=== PATIENT | male | born 1950 | race Caucasian/White ===

== ENCOUNTER 2024-12-20 10:36 | Inpatient (IN) ==
[2024-12-20] MEDS: ASPIRIN CHEW 324 MG PO STA (11:21)
[2024-12-20 11:24] LABS: Basophils # (auto) 0.05 K/uL (0.00-0.20); Basophils % (auto) 0.8 %; Eosinophils % (auto) 1.5 %; Hemoglobin 7.8 g/dl (14.0-18.0); Immature Granulocytes # (auto) 0.04 K/uL (0.01-0.20); Immature Granulocytes % (auto) 0.6 %; Lymphocytes # (auto) 1.44 K/uL (1.20-3.40); Mean Corpuscular Hemoglobin 24.6 pg (25.0-34.0); Mean Platelet Volume 9.9 fL (9.4-12.4); Monocytes # (auto) 0.64 K/uL (0.11-0.59); Monocytes % (auto) 9.8 %; Neutrophils # (auto) 4.28 K/uL (1.40-6.50); Neutrophils % (auto) 65.3 %; Platelet Count 240 K/uL (130-400); RDW Standard Deviation 53.5 fL (36.4-46.3); Red Blood Count 3.17 M/uL (4.70-6.10); White Blood Count 6.55 K/ul (4.8-10.8)
[2024-12-20 11:40] LABS: BUN Creatinine Ratio 30.2 (10-20); Calcium 8.2 mg/dl (8.6-10.3); Creatinine Clr Calc Pharmacy 47.3 ml/min; Potassium 3.4 mmol/L (3.5-5.1)
[2024-12-20 11:43] LABS: Polychromasia 1+
[2024-12-20] MEDS ORDERED: SODIUM CHLORIDE 0.9% 100 ML IV PRN ×2 (11:49→20:49)
[2024-12-20] MEDS: PANTOprazole 80 MG in DEXTROSE 5% 100 ML IV ONE (12:30)
--- NOTE | 2024-12-20 12:33 | XRay Report ---
XR chest 2V PA/lateral CLINICAL HISTORY: Chest pain, nonspecific COMPARISON STUDY: None FINDINGS: There is moderate cardiomegaly with mild pulmonary vascular congestion. No effusion, consol idation, or pneumothorax. IMPRESSION: Mild CHF. ACT 112: Negative or not required by law. Electronically signed by: Kee Kathleen M.D. 12/20/2024 12:32 PM
[2024-12-20] MEDS: PANTOprazole 40 MG in DEXTROSE 5% MINI-B 100 ML IV SCH (12:51)
[2024-12-20] MEDS: PANTOPRAZOLE BOLUS/DRIP IV STA (12:51)
[2024-12-20 18:14] LABS: Hematocrit (blood only) 28.2 % (42.0-52.0); Hemoglobin 8.6 g/dl (14.0-18.0)
--- NOTE | 2024-12-20 18:43 | Emergency Department Note ---
History of Present Illness General Chief Complaint: Cardiac Assessment Stated Complaint: SOB/TROUBLE BREATHING, DIZZY Time Seen by Provider: 12/20/24 11:05 History of Present Illness Provider Complaint: shortness of breath Onset (ago): week(s) (1) Consistency/Duration: + progressively worsening Relieved By: + upright position Exacerbated By: + lying flat Associated symptoms: + other (Blood per rectum. On Xarelto.); no chest pain, no fever, no cough, no wheezing, no hemoptysis, no syncope or no abdominal pain Home Medications Medication Instructions Recorded Confirmed Type atorvastatin 10 mg tablet 10 mg PO QAM 05/07/18 12/20/24 History losartan 100 1 tab PO QAM 05/07/18 12/20/24 History mg-hydrochlorothiazide 25 mg tablet (Hyzaar) metformin 1,000 mg tablet 1,000 mg PO BID 05/07/18 12/20/24 History metoprolol succinate 100 mg 100 mg PO QAM 05/07/18 12/20/24 History tablet,extended release 24 hr oxybutynin chloride 5 mg 5 mg PO QAM 05/07/18 12/20/24 History tablet,extended release 24 hr (Ditropan XL) pyridoxine (vitamin B6) 100 mg 100 mg PO QAM 05/07/18 12/20/24 History tablet (Vitamin B-6) tamsulosin 0.4 mg capsule (Flomax) 0.4 mg PO QAM 05/07/18 12/20/24 History qourcuzy-tm-qltgb 300 mcg-K 60 1 tab PO DAILY 10/30/24 12/20/24 History mcg-lycop 600 mcg-lutein 300 mcg tablet (Centrum Silver Men) isosorbide mononitrate 30 mg 30 mg PO DAILY #30 tabs 11/03/24 12/20/24 Rx tablet,extended release 24 hr rivaroxaban 20 mg tablet (Xarelto) 0 mg PO PM 11/12/24 12/20/24 History aspirin 81 mg tablet,delayed 81 mg PO DAILY #30 tabs 12/03/24 12/20/24 Rx release (Adult Low Dose Aspirin) clopidogrel 75 mg tablet 75 mg PO DAILY #90 tabs 12/07/24 12/20/24 Rx amlodipine 10 mg tablet 10 mg PO DAILY #30 tabs 12/10/24 12/20/24 Rx furosemide 40 mg tablet 40 mg PO DAILY PRN shortness of 12/10/24 12/20/24 Rx breath #30 tabs glipizide 10 mg tablet, extended 20 mg PO DAILY 12/20/24 12/20/24 History release 24 hr Allergies Allergy/AdvReac Type Severity Reaction Status Date / Time No Known Allergies Allergy Verified 12/07/24 11:43 Past Med/Surg History Problem List (Updated 12/20/24 @ 18:48 by Obi Marquez MD) GI bleed (Acute) CAD (coronary artery disease) Hypercholesterolemia Hypertension LVH (left ventricular hypertrophy) Atrial fibrillation, permanent Encounter for pre-operative examination Medical History Morbid obesity with BMI of 40.0-44.9, adult Lipoma of skin and subcutaneous tissue of neck Osteoarthritis Diabetes mellitus, type 2 A1C 7.0% 12/16/17 Atrial fibrillation Hyperlipidemia Surgical History Hx of colonoscopy History of tonsillectomy History of nasal septoplasty Family History Mother Diabetes Father Diabetes Social History Smoking Status: Former smoker Tobacco Type: Smokeless Tobacco (Dip or Chew) Second Hand Exposure: No; Do You Dip or Chew Tobacco: No; Hx Alcohol Use: Yes Alcohol type: beer Hx Substance Use: No Preferred Language: Welsh Communication Ability: Effective [employer] Supervisor Required: No Beliefs That Will Affect Care: None Current Living Situation: Spouse Feels Safe at Home: Yes Assistive Devices: Glasses Physical Exam 2 Vital Signs: Vital Signs - 24 hr 12/20/24 10:48 12/20/24 11:03 12/20/24 11:15 Temperature 36.7 C Temperature Source Temporal Artery Sc an Pulse Rate 65 62 Pulse Rate from Sp O2 Sensor 61 Pulse Rhythm Pulse Strength Respiratory Rate 14 19 Blood Pressure 142/64 H 140/69 Blood Pressure Madisyn n 90 95 Blood Pressure Pos ition Pulse Oximetry 96 95 Oxygen Delivery Me thod Room Air Oxygen Flow Rate Sepsis New/Unexpla ined Change in Men geraldo Status No Sepsis Action Take n by Nursing No Action Required 12/20/24 11:16 12/20/24 11:18 12/20/24 11:42 Temperature Temperature Source Pulse Rate 67 Pulse Rate from Sp O2 Sensor 66 Pulse Rhythm Pulse Strength Respiratory Rate 30 H Blood Pressure Blood Pressure Madisyn n Blood Pressure Pos ition Pulse Oximetry 94 94 92 Oxygen Delivery Me thod Room Air Room Air Oxygen Flow Rate Sepsis New/Unexpla ined Change in Men geraldo Status Sepsis Action Take n by Nursing 12/20/24 11:51 12/20/24 11:58 12/20/24 12:24 Temperature Temperature Source Pulse Rate 65 65 Pulse Rate from Sp O2 Sensor Pulse Rhythm Pulse Strength Respiratory Rate 28 H Blood Pressure 157/66 H Blood Pressure Madisyn n 122 Blood Pressure Pos ition Pulse Oximetry Oxygen Delivery Me thod Oxygen Flow Rate Sepsis New/Unexpla ined Change in Men geraldo Status Sepsis Action Take n by Nursing 12/20/24 12:24 12/20/24 12:31 12/20/24 12:33 Temperature Temperature Source Pulse Rate 64 67 Pulse Rate from Sp O2 Sensor 64 Pulse Rhythm Pulse Strength Respiratory Rate 24 24 Blood Pressure 143/77 H Blood Pressure Madisyn n 90 Blood Pressure Pos ition Pulse Oximetry 94 Oxygen Delivery Me thod Oxygen Flow Rate Sepsis New/Unexpla ined Change in Men geraldo Status Sepsis Action Take n by Nursing 12/20/24 12:57 12/20/24 13:00 12/20/24 13:03 Temperature Temperature Source Pulse Rate 63 59 L Pulse Rate from Sp O2 Sensor 69 61 Pulse Rhythm Pulse Strength Respiratory Rate 24 24 Blood Pressure 143/63 H Blood Pressure Madisyn n 100 Blood Pressure Pos ition Pulse Oximetry 94 93 Oxygen Delivery Me thod Oxygen Flow Rate Sepsis New/Unexpla ined Change in Men geraldo Status Sepsis Action Take n by Nursing 12/20/24 14:26 12/20/24 14:40 12/20/24 14:42 Temperature 36.4 C L 36.8 C 36.8 C Temperature Source Oral Oral Oral Pulse Rate 61 53 L Pulse Rate from Sp O2 Sensor Pulse Rhythm Regular Regular Pulse Strength Normal Normal Respiratory Rate 21 20 20 Blood Pressure 125/65 145/70 H 151/70 H Blood Pressure Madisyn n 85 95 97 Blood Pressure Pos ition Sitting Sitting Pulse Oximetry 92 96 94 Oxygen Delivery Me thod Oxygen Flow Rate Sepsis New/Unexpla ined Change in Men geraldo Status Sepsis Action Take n by Nursing 12/20/24 14:57 12/20/24 15:27 12/20/24 16:08 Temperature 36.8 C 36.5 C 36.5 C Temperature Source Oral Oral Oral Pulse Rate 62 61 53 L Pulse Rate from Sp O2 Sensor Pulse Rhythm Regular Pulse Strength Normal Respiratory Rate 18 19 17 Blood Pressure 152/76 H 156/81 H 150/77 H Blood Pressure Madisyn n 101 106 101 Blood Pressure Pos ition Sitting Pulse Oximetry 93 94 95 Oxygen Delivery Me thod Oxygen Flow Rate 0 0 Sepsis New/Unexpla ined Change in Men geraldo Status Sepsis Action Take n by Nursing 12/20/24 16:21 12/20/24 16:23 12/20/24 16:24 Temperature Temperature Source Pulse Rate 52 L 64 55 L Pulse Rate from Sp O2 Sensor 57 L 56 L Pulse Rhythm Pulse Strength Respiratory Rate 22 25 H Blood Pressure Blood Pressure Madisyn n Blood Pressure Pos ition Pulse Oximetry 93 95 Oxygen Delivery Me thod Room Air Room Air Oxygen Flow Rate Sepsis New/Unexpla ined Change in Men geraldo Status Sepsis Action Take n by Nursing 12/20/24 16:30 12/20/24 17:00 12/20/24 17:00 Temperature Temperature Source Pulse Rate 49 L Pulse Rate from Sp O2 Sensor 54 L Pulse Rhythm Pulse Strength Respiratory Rate 23 Blood Pressure 151/78 H 145/73 H Blood Pressure Madisyn n 115 98 Blood Pressure Pos ition Pulse Oximetry 94 Oxygen Delivery Me thod Room Air Oxygen Flow Rate Sepsis New/Unexpla ined Change in Men geraldo Status Sepsis Action Take n by Nursing 12/20/24 17:18 12/20/24 17:30 12/20/24 17:36 Temperature Temperature Source Pulse Rate 51 L 63 Pulse Rate from Sp O2 Sensor 58 L Pulse Rhythm Pulse Strength Respiratory Rate 15 24 Blood Pressure 148/76 H Blood Pressure Madisyn n 110 Blood Pressure Pos ition Pulse Oximetry 91 Oxygen Delivery Me thod Oxygen Flow Rate Sepsis New/Unexpla ined Change in Men geraldo Status Sepsis Action Take n by Nursing 12/20/24 18:00 12/20/24 18:03 12/20/24 18:30 Temperature Temperature Source Pulse Rate 58 L 57 L Pulse Rate from Sp O2 Sensor 57 L 62 Pulse Rhythm Pulse Strength Respiratory Rate 20 18 Blood Pressure 150/77 H Blood Pressure Madisyn n 85 Blood Pressure Pos ition Pulse Oximetry 94 93 Oxygen Delivery Me thod Room Air Oxygen Flow Rate Sepsis New/Unexpla ined Change in Men geraldo Status Sepsis Action Take n by Nursing 12/20/24 18:30 Temperature Temperature Source Pulse Rate Pulse Rate from Sp O2 Sensor Pulse Rhythm Pulse Strength Respiratory Rate Blood Pressure 162/77 H Blood Pressure Madisyn n 109 Blood Pressure Pos ition Pulse Oximetry Oxygen Delivery Me thod Oxygen Flow Rate Sepsis New/Unexpla ined Change in Men geraldo Status Sepsis Action Take n by Nursing Physical Exam: Physical Exam HENT: Exam performed. - Head: Normocephalic and atraumatic. EYES: Conjunctivae and EOM are normal. Pupils are equal, round, and reactive to light. Right eye exhibits no discharge. Left eye exhibits no discharge. No scleral icterus. NECK: Normal range of motion. Neck supple. No JVD present.No rigidity. No tracheal deviation and normal range of motion present. CV: Normal rate, irregular rhythm, normal heart sounds and intact distal pulses. 2+ pitting edema of the bilateral lower extremities. Palpable radial pulses bue. PULM/CHEST: Inspiratory rales bilaterally. ABD: The abdomen is soft. Morbidly obese. There is no tenderness. There is no rebound, no guarding. Rectal: Melanotic stool Hemoccult positive NEURO: Motor and sensation grossly intact. Course Course 1105: The patient was evaluated in room B5. A complete history and physical exam was performed Cardiac monitoring: An order was placed for continuous cardiac monitoring. The monitor shows a rate of 60 with atrial fibrilation rhythm interpreted by me 1230: Vital signs stable. Patient's hemoglobin is down to 7.8 and his creatinine is up to 1.89. Troponin is negative. Patient's dyspnea is thought to be more due to his GI bleed and anemia. Given patient's history of coronary artery disease and feelings of dyspnea as well as JOSSIE, patient be transfused 1 unit packed red blood cells. Patient started on Protonix bolus and drip. Patient will be admitted to the [facility] hospitalist team. 1549: Still awaiting hospitalist orders. Contacted Dr. Gould who states she will be down to evaluate the patient. 1610: Spoke with Dr. Gould [facility] hospitalist about the patient. She asked that I speak with GI. GI Dr. De La Torre was notified via [facility] text about the patient. Administered Medications Pantoprazole Sodium 40 mg/ (Dextrose) 100 mls @ 20 mls/hr IV Q5H NGHIA Stop: 01/19/25 12:14 Last Admin: 12/20/24 17:45 Dose: 8 mg/hr, 20 mls/hr Documented By: Infusion: 12/20/24 17:43 Dose: Infused Documented By: Admin: 12/20/24 12:51 Dose: 8 mg/hr, 20 mls/hr Documented By: ALEJANDRO Discontinued Medications Aspirin (Aspirin Chew 324 Mg) 324 mg PO NOW STA Stop: 12/20/24 11:08 Last Admin: 12/20/24 11:21 Dose: 324 mg Documented By: ALEJANDRO Pantoprazole Sodium 80 mg/ (Dextrose) 120 mls @ 480 mls/hr IV NOW ONE Stop: 12/20/24 12:03 Last Infusion: 12/20/24 12:50 Dose: Infused Documented By: Admin: 12/20/24 12:30 Dose: 480 mls/hr Documented By: ALEJANDRO Pantoprazole Sodium (Pantoprazole Bolus/Drip) 1 each IV NOW STA Stop: 12/20/24 11:50 Last Admin: 12/20/24 12:51 Dose: Not Given Documented By: ALEJANDRO Medical Decision Making Laboratory Data Attestation: I reviewed the patient's lab results. 12/20/24 17:58 12/20/24 11:10 Lab Results 12/20/24 12/20/24 12/20/24 Range/Units 11:10 12:45 13:10 WBC 6.55 (4.8-10.8) K/ul RBC 3.17 L (4.70-6.10) M/uL Hgb 7.8 L (14.0-18.0) g/dl Hct 26.0 L (42.0-52.0) % MCV 82.0 (80.0-100.0) fL MCH 24.6 L (25.0-34.0) pg MCHC 30.0 L (32.0-36.0) g/dL RDW Std Deviation 53.5 H (36.4-46.3) fL RDW Coeff of Steven 18.0 H (11.5-14.5) % Plt Count 240 (130-400) K/uL MPV 9.9 (9.4-12.4) fL Immature Gran % (Auto) 0.6 % Neut % (Auto) 65.3 % Lymph % (Auto) 22.0 % [place] % (Auto) 9.8 % Eos % (Auto) 1.5 % Baso % (Auto) 0.8 % Neut # (Auto) 4.28 (1.40-6.50) K/uL Lymph # (Auto) 1.44 (1.20-3.40) K/uL [place] # (Auto) 0.64 H (0.11-0.59) K/uL Eos # (Auto) 0.10 (0.00-0.50) K/uL Baso # (Auto) 0.05 (0.00-0.20) K/uL Immature Gran # (Auto) 0.04 (0.01-0.20) K/uL Polychromasia 1+ Sodium 139 (136-145) mmol/L Potassium 3.4 L (3.5-5.1) mmol/L Chloride 105 (98-107) mmol/L Carbon Dioxide 25 (21-32) mmol/L Anion Gap 9 (3-11) BUN 57 H (6-23) mg/dl Creatinine 1.89 H (0.6-1.4) mg/dl Est Cr Clr Drug Dosing 47.3 ml/min eGFR 36.79 BUN/Creatinine Ratio 30.2 H (10-20) Glucose 182 H (70-99(Fasting)) mg/dl POC Glucose (70-99) mg/dl Calcium 8.2 L (8.6-10.3) mg/dl Troponin I High Sens 13.0 (0-20) pg/ml B-Natriuretic Peptide 332 H (0-100) pg/ml Lipase 78 (11-82) U/L Blood Type B Positive Blood Type Recheck B Positive Antibody Screen NEGATIVE Crossmatch See Detail 12/20/24 12/20/24 Range/Units 17:58 18:16 WBC (4.8-10.8) K/ul RBC (4.70-6.10) M/uL Hgb 8.6 L (14.0-18.0) g/dl Hct 28.2 L (42.0-52.0) % MCV (80.0-100.0) fL MCH (25.0-34.0) pg MCHC (32.0-36.0) g/dL RDW Std Deviation (36.4-46.3) fL RDW Coeff of Steven (11.5-14.5) % Plt Count (130-400) K/uL MPV (9.4-12.4) fL Immature Gran % (Auto) % Neut % (Auto) % Lymph % (Auto) % [place] % (Auto) % Eos % (Auto) % Baso % (Auto) % Neut # (Auto) (1.40-6.50) K/uL Lymph # (Auto) (1.20-3.40) K/uL [place] # (Auto) (0.11-0.59) K/uL Eos # (Auto) (0.00-0.50) K/uL Baso # (Auto) (0.00-0.20) K/uL Immature Gran # (Auto) (0.01-0.20) K/uL Polychromasia Sodium (136-145) mmol/L Potassium (3.5-5.1) mmol/L Chloride (98-107) mmol/L Carbon Dioxide (21-32) mmol/L Anion Gap (3-11) BUN (6-23) mg/dl Creatinine (0.6-1.4) mg/dl Est Cr Clr Drug Dosing ml/min eGFR BUN/Creatinine Ratio (10-20) Glucose (70-99(Fasting)) mg/dl POC Glucose 196 H (70-99) mg/dl Calcium (8.6-10.3) mg/dl Troponin I High Sens (0-20) pg/ml B-Natriuretic Peptide (0-100) pg/ml Lipase (11-82) U/L Blood Type Blood Type Recheck Antibody Screen Crossmatch Imaging Data Attestation: I personally reviewed and interpreted this imaging study as follows: My Impression: Chest x-ray: Cardiomegaly with cephalization Radiologist's Impression: Chest X-Ray 12/20/24 11:07 XR chest 2V PA/lateral CLINICAL HISTORY: Chest pain, nonspecific COMPARISON STUDY: None FINDINGS: There is moderate cardiomegaly with mild pulmonary vascular congestion. No effusion, consolidation, or pneumothorax. IMPRESSION: Mild CHF. ACT 112: Negative or not required by law. Electronically signed by: Kee Kathleen M.D. 12/20/2024 12:32 PM ECG Data Attestation: I personally reviewed and interpreted this ECG as follows: Interpretation: Atrial fibrillation with rate of 58. QRS and QTc intervals are within normal limits. No ST elevation or ST depression. [facility] Narrative 1105: The patient was evaluated in room B5. A complete history and physical exam was performed Cardiac monitoring: An order was placed for continuous cardiac monitoring. The monitor shows a rate of 60 with atrial fibrilation rhythm interpreted by me 1230: Vital signs stable. Patient's hemoglobin is down to 7.8 and his creatinine is up to 1.89. Troponin is negative. Patient's dyspnea is thought to be more due to his GI bleed and anemia. Given patient's history of coronary artery disease and feelings of dyspnea as well as JOSSIE, patient be transfused 1 unit packed red blood cells. Patient started on Protonix bolus and drip. Patient will be admitted to the [facility]ist team. 1549: Still awaiting hospitalist orders. Contacted Dr. Gould who states she will be down to evaluate the patient. 1610: Spoke with Dr. Gould [facility] Hospitalist about the patient. She asked that I speak with GI. GI Dr. De La Torre was notified via [facility] text about the patient. Impression & Plan GI bleed Critical Care Time Critical Care Time: Yes Total Critical Care Time: 76 I have personally spent greater than 76 minutes of critical care time in the direct management of this patient. This includes bedside care, interpretation of diagnostic studies, and testing, discussion with consultants, patient, and family members, and other required patient management activities. This 76 minutes is in excess of all separately billable procedures. Discharge Plan Visit Data Chief Complaint: Cardiac Assessment Stated Complaint: SOB/TROUBLE BREATHING, DIZZY ED Provider: Obi Marquez Discharge Problem: GI bleed Patient Disposition: Admitted As Inpatient Condition: Fair Forms Stand Alone Forms: My [facility] Prescriptions Prescriptions: No Action amlodipine 10 mg tablet 10 mg PO DAILY Qty: 30 5RF furosemide 40 mg tablet 40 mg PO DAILY PRN (Reason: shortness of breath) Qty: 30 1RF aspirin [Adult Low Dose Aspirin] 81 mg tablet,delayed release (DR/EC) 81 mg PO DAILY Qty: 30 11RF clopidogrel 75 mg tablet 75 mg PO DAILY Qty: 90 3RF Centrum Silver Men [id number] mcg tablet 1 tab PO DAILY atorvastatin 10 mg Tablet 10 mg PO QAM metoprolol succinate 100 mg Tablet Extended Release 24 Hr 100 mg PO QAM losartan-hydrochlorothiazide [Hyzaar] 100-25 mg Tablet 1 tab PO QAM tamsulosin [Flomax] 0.4 mg Capsule 0.4 mg PO QAM metformin 1,000 mg Tablet 1,000 mg PO BID oxybutynin chloride [Ditropan XL] 5 mg Tablet Extended Release 24hr 5 mg PO QAM pyridoxine (vitamin B6) [Vitamin B-6] 100 mg Tablet 100 mg PO QAM Xarelto 20 mg tablet 0 mg PO PM Rx Instructions: WAS ON 20 MG NO RECENT FILL SINCE 04/2024. UNABLE TO VERIFY WITH PT glipizide 10 mg tablet extended release 24hr 20 mg PO DAILY isosorbide mononitrate 30 mg tablet extended release 24 hr 30 mg PO DAILY Qty: 30 6RF Referrals Referrals: Feroz Moore PA-C [Primary Care Provider] - Discharge Problem: GI bleed Qualifiers: GI bleed type/associated pathology: melena Qualified Code(s): K92.1 - Melena
--- NOTE | 2024-12-20 20:24 | History & Physical Report ---
Date of Service December 20, 2024 Assessment & Plan (1) GI bleed: Plan: Continue patient on IV Protonix Check H&H every 6 hours Patient will be n.p.o. 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 And denies epigastric pain Allergies Allergy/AdvReac Type Severity Reaction Status Date / Time No Known Allergies Allergy Verified 12/07/24 11:43 Home Medications Medication Instructions Recorded Confirmed Type atorvastatin 10 mg tablet 10 mg PO QAM 05/07/18 12/20/24 History losartan 100 1 tab PO QAM 05/07/18 12/20/24 History mg-hydrochlorothiazide 25 mg tablet (Hyzaar) metformin 1,000 mg tablet 1,000 mg PO BID 05/07/18 12/20/24 History metoprolol succinate 100 mg 100 mg PO QAM 05/07/18 12/20/24 History tablet,extended release 24 hr oxybutynin chloride 5 mg 5 mg PO QAM 05/07/18 12/20/24 History tablet,extended release 24 hr (Ditropan XL) pyridoxine (vitamin B6) 100 mg 100 mg PO QAM 05/07/18 12/20/24 History tablet (Vitamin B-6) tamsulosin 0.4 mg capsule (Flomax) 0.4 mg PO QAM 05/07/18 12/20/24 History dlyrggfx-hr-rlhbe 300 mcg-K 60 1 tab PO DAILY 10/30/24 12/20/24 History mcg-lycop 600 mcg-lutein 300 mcg tablet (Centrum Silver Men) isosorbide mononitrate 30 mg 30 mg PO DAILY #30 tabs 11/03/24 12/20/24 Rx tablet,extended release 24 hr rivaroxaban 20 mg tablet (Xarelto) 0 mg PO PM 11/12/24 12/20/24 History aspirin 81 mg tablet,delayed 81 mg PO DAILY #30 tabs 12/03/24 12/20/24 Rx release (Adult Low Dose Aspirin) clopidogrel 75 mg tablet 75 mg PO DAILY #90 tabs 12/07/24 12/20/24 Rx amlodipine 10 mg tablet 10 mg PO DAILY #30 tabs 12/10/24 12/20/24 Rx furosemide 40 mg tablet 40 mg PO DAILY PRN shortness of 12/10/24 12/20/24 Rx breath #30 tabs glipizide 10 mg tablet, extended 20 mg PO DAILY 12/20/24 12/20/24 History release 24 hr Past Med/Surg History Problem List (Updated 12/20/24 @ 18:48 by Obi Marquez MD) GI bleed (Acute) CAD (coronary artery disease) Hypercholesterolemia Hypertension LVH (left ventricular hypertrophy) Atrial fibrillation, permanent Encounter for pre-operative examination Medical History Morbid obesity with BMI of 40.0-44.9, adult Lipoma of skin and subcutaneous tissue of neck Osteoarthritis Diabetes mellitus, type 2 A1C 7.0% 12/16/17 Atrial fibrillation Hyperlipidemia Surgical History Hx of colonoscopy History of tonsillectomy History of nasal septoplasty Family History Mother Diabetes Father Diabetes Social History Smoking Status: Former smoker Tobacco Type: Smokeless Tobacco (Dip or Chew) Second Hand Exposure: No; Do You Dip or Chew Tobacco: No; Hx Alcohol Use: Yes Alcohol type: beer Hx Substance Use: No Preferred Language: Thai Communication Ability: Effective Hebrew Cantor Required: No Beliefs That Will Affect Care: None Current Living Situation: Spouse Feels Safe at Home: Yes Assistive Devices: Glasses Review of Systems Review of Systems: Positive for shortness of breath positive for dizziness negative for chest pain negative for abdominal pain negative for bright red blood per rectum positive for dark melanotic stools Physical Exam Physical Exam: Patient is sitting at the edge of the ER bed after receiving 1 unit of packed RBC He is morbidly obese with a BMI of 42.4 HEENT atraumatic normocephalic pupil equal round reactive to light Mucous members are moist neck is supple Chest is clear to auscultation Cardiovascular S1-S2 irregularly irregular patient has history of atrial fibrillation Abdomen is obese firm nontender bowel sounds are present Extremities +1 edema Neurologically cranial nerves II to XII are intact no motor or sensory deficit identified Skin exam is within normal limits Results & Data Results & Data Vital Signs (Past 12 Hours) Vital Signs Temp Pulse Resp BP Pulse Ox O2 Del Method O2 Flow Rate 12/20/24 17:00 49 L 23 94 Room Air 12/20/24 17:00 145/73 H 12/20/24 16:30 151/78 H 12/20/24 16:24 55 L 25 H 95 Room Air 12/20/24 16:23 64 12/20/24 16:21 52 L 22 93 Room Air 12/20/24 16:08 36.5 C 53 L 17 150/77 H 95 0 12/20/24 15:27 36.5 C 61 19 156/81 H 94 0 12/20/24 14:57 36.8 C 62 18 152/76 H 93 12/20/24 14:42 36.8 C 53 L 20 151/70 H 94 12/20/24 14:40 36.8 C 20 145/70 H 96 12/20/24 14:26 36.4 C L 61 21 125/65 92 12/20/24 13:03 59 L 24 93 12/20/24 13:00 143/63 H 12/20/24 12:57 63 24 94 12/20/24 12:33 67 24 94 12/20/24 12:31 143/77 H 12/20/24 12:24 64 24 12/20/24 12:24 65 12/20/24 11:58 157/66 H 12/20/24 11:51 65 28 H 12/20/24 11:42 67 30 H 92 12/20/24 11:18 94 Room Air 12/20/24 11:16 94 Room Air 12/20/24 11:15 62 19 95 12/20/24 11:03 140/69 12/20/24 10:48 36.7 C 65 14 142/64 H 96 Room Air Laboratory Results Patient's hemoglobin dropped from 11.4-7.8 after 1 unit of blood transfusion it is 8.6 creatinine was 1.12 and now it is 1.89 BUN level has been elevated patient's BNP is 332 Diagnostic Findings Chest x-ray shows mild pulmonary vascular congestion no effusion consolidation or pneumothorax Medications Administered Patient has received Protonix IV will continue IV Protonix Code Status & VTE Plan VTE Prophylaxis Plan VTE Prophylaxis will be ordered: Yes PG Care Time/CCT Total # of Minutes Spent Total Time Spent with Patient: Total time spent is greater than 50% in coordination of care (as documented) at patient's floor/unit and/or counseling patient: Coding Level of Care Code 98063 INT INP/OBS CARE 3/75MIN Diagnoses GI bleed K92.1 GI bleed type/associated pathology: melena CAD (coronary artery disease) I25.10 Atrial fibrillation, permanent I48.21 Time Spent (min) 75 (1) GI bleed GI bleed type/associated pathology: melena Qualified Code(s): K92.1 - Melena
[2024-12-20] MEDS ORDERED: GLUCOSE 10 TAB/TUBE PO PRN (20:49)
[2024-12-20] MEDS ORDERED: GLUCAGON FOR INJ 1 MG VIAL SQ PRN (20:49)
[2024-12-20] MEDS ORDERED: GLUCOSE 40% GEL 15 GM TUBE PO PRN (20:49)
[2024-12-20] MEDS ORDERED: DEXTROSE 50% 50 ML SYRINGE IV PRN (20:49)
[2024-12-21 00:05] LABS: Hematocrit (blood only) 25.7 % (42.0-52.0); Hemoglobin 7.9 g/dl (14.0-18.0)
[2024-12-21] MEDS: INSULIN ASPART PER UNIT CHARGE SC SCH ×2 (00:10→17:10)
[2024-12-21 06:29] LABS: Hematocrit (blood only) 25.2 % (42.0-52.0); Hemoglobin 7.7 g/dl (14.0-18.0); Mean Corpuscular Hemoglobin 25.2 pg (25.0-34.0); Mean Corpuscular Hgb Conc 30.6 g/dL (32.0-36.0); Mean Corpuscular Volume 82.4 fL (80.0-100.0); Platelet Count 239 K/uL (130-400); RDW Coefficient of Variation 17.4 % (11.5-14.5); Red Blood Count 3.06 M/uL (4.70-6.10); White Blood Count 6.89 K/ul (4.8-10.8)
[2024-12-21 07:02] LABS: BUN Creatinine Ratio 31.3 (10-20); Calcium 8.4 mg/dl (8.6-10.3); Creatinine Clr Calc Pharmacy 60.8 ml/min; Potassium 3.7 mmol/L (3.5-5.1)
[2024-12-21 07:21] LABS: Estimated Average Glucose 174 mg/dl; Hemoglobin A1C 7.7 % (4.5-5.6)
[2024-12-21] MEDS: SODIUM CHLORIDE 0.9% 1,000 ML IV SCH (08:09)
[2024-12-21] MEDS ORDERED: amLODIPine BESYLATE 5 MG TAB PO SCH (09:00)
--- NOTE | 2024-12-21 10:30 | Gastrointestinal Consultation ---
Date of Consultation December 21, 2024 Assessment & Plan (1) GI bleed: Plan Patient admitted with reported melena and anemia. Case was discussed with Dr. De La Torre. - set up EGD for today to further evaluate. - continue to follow hgb/hct and transfuse as needed. - continue with protonix drip. 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 2 to 3 weeks of dark melanotic stool. Patient was not aware that this might be blood. Previous history. Bleeding corresponded to introduction of Plavix to his Xarelto and baby aspirin apparently patient also takes a arthritis medication [id number] from [facility] which is likely ibuprofen. So this is relatively infrequent every 3 weeks. Patient's MCV is lowish at 82 we probably should check his iron stores. Hemoglobin remains lowish around 8 g/dL. No active hemorrhage. Potential peptic ulcer disease versus gastric or small bowel AVMs. EGD today. No Xarelto greater than 24 hours. EGD can be performed in patients on Plavix History of Present Illness Reason for Consultation: melanotic stool Requesting Physician: Renetta Gould MD Attending Physician: Romaine Benson MD History of Present Illness Patient is a 74 year old male who came to the ED on 12/20/24 with complaints of dizziness, SOB, and has been experiencing black stool for 2 weeks. He reports that he has been on Xarelto for 5-6 years and plavix for a few weeks after he had a heart cath showing calcifications. he tells me that there were not any stents placed. Upon work up in the ED, he was found to have a hemoglobin of 7.8 and creatinine 1.89 and patient received 1 unit of packed RBC and saw hgb improve to 8.6. He denies smoking or alcohol use as well as the use of nonsteroidal anti-inflammatory medications. He reports that while stools have been dark, that he is actually having more constipation issues. Since recieving blood, he reports that his dizziness and SOB have resolved. He reports that he had an unremarkable colonoscopy with Maria Isabel earlier this year. I do not have these records. The remainder of the GI ROS are unremarkable. Allergies Allergy/AdvReac Type Severity Reaction Status Date / Time No Known Allergies Allergy Verified 12/21/24 11:04 Home Medications Medication Instructions Recorded Confirmed Type atorvastatin 10 mg tablet 10 mg PO QAM 05/07/18 12/20/24 History losartan 100 1 tab PO QAM 05/07/18 12/20/24 History mg-hydrochlorothiazide 25 mg tablet (Hyzaar) metformin 1,000 mg tablet 1,000 mg PO BID 05/07/18 12/20/24 History metoprolol succinate 100 mg 100 mg PO QAM 05/07/18 12/20/24 History tablet,extended release 24 hr oxybutynin chloride 5 mg 5 mg PO QAM 05/07/18 12/20/24 History tablet,extended release 24 hr (Ditropan XL) pyridoxine (vitamin B6) 100 mg 100 mg PO QAM 05/07/18 12/20/24 History tablet (Vitamin B-6) tamsulosin 0.4 mg capsule (Flomax) 0.4 mg PO QAM 05/07/18 12/20/24 History bztihpwi-qn-pipmr 300 mcg-K 60 1 tab PO DAILY 10/30/24 12/20/24 History mcg-lycop 600 mcg-lutein 300 mcg tablet (Centrum Silver Men) isosorbide mononitrate 30 mg 30 mg PO DAILY #30 tabs 11/03/24 12/20/24 Rx tablet,extended release 24 hr rivaroxaban 20 mg tablet (Xarelto) 0 mg PO PM 11/12/24 12/21/24 History aspirin 81 mg tablet,delayed 81 mg PO DAILY #30 tabs 12/03/24 12/21/24 Rx release (Adult Low Dose Aspirin) clopidogrel 75 mg tablet 75 mg PO DAILY #90 tabs 12/07/24 12/21/24 Rx amlodipine 10 mg tablet 10 mg PO DAILY #30 tabs 12/10/24 12/20/24 Rx furosemide 40 mg tablet 40 mg PO DAILY PRN shortness of 12/10/24 12/20/24 Rx breath #30 tabs glipizide 10 mg tablet, extended 20 mg PO DAILY 12/20/24 12/20/24 History release 24 hr Patient History Medical History (Updated 12/21/24 @ 08:[address]) Morbid obesity with BMI of 40.0-44.9, adult Lipoma of skin and subcutaneous tissue of neck Osteoarthritis Diabetes mellitus, type 2 Atrial fibrillation Hyperlipidemia Surgical History Hx of colonoscopy History of tonsillectomy History of nasal septoplasty Family History Mother Diabetes Father Diabetes Social History Smoking Status: Former smoker Tobacco Type: Smokeless Tobacco (Dip or Chew) Smoking End Date: 40yrs ago; Second Hand Exposure: No; Do You Dip or Chew Tobacco: No; Hx Alcohol Use: Yes Alcohol type: beer Hx Substance Use: No Preferred Language: Swazi Communication Ability: Effective Coremaker Helper Required: No Beliefs That Will Affect Care: None Current Living Situation: Spouse Feels Safe at Home: Yes Safety Concerns: Feels Safe At This Time Assistive Devices: BiPap and Glasses Review of Systems Review of Systems: All systems reviewed & are unremarkable except as noted in HPI & below Physical Exam Constitutional: WD/WN, vitals as above Respiratory: normal respiratory effort, lungs clear to auscultation Cardiovascular: Rate/Rhythm: regular rate and regular rhythm Gastrointestinal (Abdomen): normal bowel sounds, soft, nontender, no hepatosplenomegaly Psychiatric: Orientation: alert and oriented x 3 Affect: euthymic affect Results & Data Vital Signs (Past 12 Hours) Vital Signs Temp Pulse Pulse Resp BP Pulse Ox O2 Del Method 12/21/24 07:56 97.5 F L 64 20 148/68 H 91 CPAP 12/21/24 04:34 57 L 12/21/24 04:00 98.1 F 57 L 16 136/59 L 92 CPAP 12/20/24 23:56 73 20 132/53 L 90 CPAP Coding Level of Care Code 12287 INT INP/OBS CARE 2/55MIN Diagnoses GI bleed K92.1 GI bleed type/associated pathology: melena (1) GI bleed GI bleed type/associated pathology: melena Qualified Code(s): K92.1 - Melena
--- NOTE | 2024-12-21 11:18 | Anesthesiology Consultation ---
Date of Service December 21, 2024 Assessment & Plan Chart Review Chart Review: Acceptable Risk for Surgery Consults Requested none ASA ASA3 Proposed Anesthesia Anesthesia Type: MAC Risk / Benefits Reviewed With: PT / POA / Parent / Guardian, Accepts Plan and Informed Consent Obtained Additional Comments: pt aware of dental risk and accepts History Surgery Operation Date: 12/21/24 16:45 Proposed Procedures p Esophagogastroduodenoscopy Dr. Wil De La Torre MD Height/Weight Height: 5 ft 10 in Weight: 134.3 kg Allergies Allergy/AdvReac Type Severity Reaction Status Date / Time No Known Allergies Allergy Verified 12/21/24 11:04 Medications Home Medications Medication Instructions Recorded Confirmed Last Taken atorvastatin 10 mg tablet 10 mg PO QAM 05/07/18 12/20/24 05/09/18 07:00 losartan 100 1 tab PO QAM 05/07/18 12/20/24 05/12/18 06:40 mg-hydrochlorothiazide 25 mg tablet (Hyzaar) metformin 1,000 mg tablet 1,000 mg PO BID 05/07/18 12/20/24 11/01/24 metoprolol succinate 100 mg 100 mg PO QAM 05/07/18 12/20/24 11/03/24 tablet,extended release 24 hr oxybutynin chloride 5 mg 5 mg PO QAM 05/07/18 12/20/24 05/09/18 07:00 tablet,extended release 24 hr (Ditropan XL) pyridoxine (vitamin B6) 100 mg 100 mg PO QAM 05/07/18 12/20/24 05/09/18 07:00 tablet (Vitamin B-6) tamsulosin 0.4 mg capsule (Flomax) 0.4 mg PO QAM 05/07/18 12/20/24 05/09/18 07:00 hofdmoql-ln-ecmnw 300 mcg-K 60 1 tab PO DAILY 10/30/24 12/20/24 Unknown mcg-lycop 600 mcg-lutein 300 mcg tablet (Centrum Silver Men) isosorbide mononitrate 30 mg 30 mg PO DAILY #30 tabs 11/03/24 12/20/24 Unknown tablet,extended release 24 hr rivaroxaban 20 mg tablet (Xarelto) 0 mg PO PM 11/12/24 12/21/24 12/19/24 aspirin 81 mg tablet,delayed 81 mg PO DAILY #30 tabs 12/03/24 12/21/24 12/20/24 release (Adult Low Dose Aspirin) clopidogrel 75 mg tablet 75 mg PO DAILY #90 tabs 12/07/24 12/21/24 12/20/24 amlodipine 10 mg tablet 10 mg PO DAILY #30 tabs 12/10/24 12/20/24 Unknown furosemide 40 mg tablet 40 mg PO DAILY PRN shortness of 12/10/24 12/20/24 Unknown breath #30 tabs glipizide 10 mg tablet, extended 20 mg PO DAILY 12/20/24 12/20/24 Unknown release 24 hr Active Medications Generic Name Dose Route Start Last Admin Trade Name Freq PRN Reason Stop Dose Admin Pantoprazole Sodium 40 mg/ 100 mls @ 20 mls/hr 12/20/24 12:15 12/21/24 08:09 Dextrose IV 01/19/25 12:14 8 mg/hr Q5H NGHIA 20 mls/hr Administration 8 MG/HR Sodium Chloride 1,000 mls @ 80 mls/hr 12/21/24 08:00 12/21/24 08:09 Nss IV 12/24/24 07:59 80 mls/hr .[id number] NGHIA Administration Insulin Aspart 0 units 12/21/24 00:00 12/21/24 06:40 Insulin Aspart Per Unit Charge SC 01/20/25 00:00 1 units Q6 NGHIA Administration NPO Date Last Intake of Fluids: 12/20/24 Time Last Intake of Fluids: 23:59 Date Last Intake of Solids: 12/20/24 Time Last Intake of Solids: 23:59 Past Medical History Medical History ZECHARIAH (obstructive sleep apnea) Bipap Morbid obesity with BMI of 40.0-44.9, adult Lipoma of skin and subcutaneous tissue of neck Osteoarthritis Diabetes mellitus, type 2 Atrial fibrillation Hyperlipidemia Exercise / Class Metabolic Activity III < 4 Walking/Shop/Light housework Past Family History Family History Mother Diabetes Father Diabetes Past Surgical History Surgical History Hx of total knee arthroplasty Hx of colonoscopy History of tonsillectomy History of nasal septoplasty Past Anesthesia History No Hx of Anesthesia Complications and No Family Hx of Anesthesia Complications History of PONV No Hx of PONV and No Hx of Motion Sickness Social History Smoking Status: Former smoker Do You Dip or Chew Tobacco: No Smoking End Date: 40yrs ago Hx Alcohol Use: Yes Alcohol type: beer alcohol intake frequency: holidays/special occasions only Hx Substance Use: No substance use type: does not use Physical Exam Vital Signs Last Vital Signs Temp 36.4 C L 12/21/24 07:56 Pulse 64 12/21/24 07:56 Resp 20 12/21/24 07:56 BP 148/68 H 12/21/24 07:56 Pulse Ox 91 12/21/24 07:56 O2 Del Method CPAP 12/21/24 07:56 O2 Flow Rate 0 12/20/24 16:08 Constitutional + morbidly obese ENMT Mouth: + dentition abnormality (mult missing teeth. all broken. terrie poor dent); no TMJ abnormality Thyromental Distance: > or= 3.5 Finger Breadths Mallampati Class: III Neck normal visual inspection, trachea midline, + thick neck and + facial hair; neck extension not limited Respiratory normal respiratory effort Auscultation: lungs clear to auscultation bilaterally and + diminished lung sounds Cardiovascular Rate/Rhythm: regular rate and regular rhythm (irreg irreg) Heart Sounds: no murmur Musculoskeletal Spine: normal cervical ROM Extremities: full ROM of extremities Neurologic moves all extremities Psychiatric Orientation: alert and oriented x 3 Testing Laboratory Results 12/21/24 05:49 12/21/24 05:49 Hemoglobin A1c 7.7 % (4.5-5.6) H 12/21/24 05:49 Blood Type B Positive 12/20/24 12:45 Antibody Screen NEGATIVE 12/20/24 12:45 12/21/24 12/20/24 06:32 23:59 POC Glucose 155 H 159 H Stress Test pos dse oted november 2024 in chart
[2024-12-21] MEDS: METOPROLOL SUCC 50MG EXT REL TAB PO SCH (11:54)
--- NOTE | 2024-12-21 12:24 | Communication Note ---
Date of Service: December 21, 2024 EGD note Scope advanced the third part of the duodenum. Glucagon given to inhibit duodenal motility to provide improved visualization of the small bowel. No blood noted in the stomach or duodenum. No source for bleeding seen. No peptic ulcer disease. Pattern of bleeding for 2 to 3 weeks with introduction of Plavix is most consistent with intestinal AVMs. He could have small AVMs which were not bleeding and not visualized today or AVMs beyond the reach of the upper scope. As symptoms began after the introduction of Plavix reconsider the use of Plavix and aspirin and Xarelto combination. Patient had a recent colonoscopy this does not need to be repeated. If further information required or continued bleeding with stopping Plavix consider small bowel video capsule endoscopy. Patient also advised to avoid [id number]-[id number] arthritis medications other than acetaminophen. Maximum 4 tablets/day. Patient has a low MCV. Check iron levels on pretransfusion blood, this has been ordered.
--- NOTE | 2024-12-21 12:30 | GI REPORT ---
[facility] Patient: JONATHAN HOLCOMB : 1950 Sex at : Male Age: 74 Years Procedure: Upper GI endoscopy Date: 12/21/2024 Attending Physician: William De La Torre MD Referring MD: Referred Self Indications: - Suspected upper gastrointestinal bleeding - Melena Medications: - Monitored Anesthesia Care Complications: - No immediate complications. Estimated Blood Loss: - Estimated blood loss: None. Procedure: - The egd scope was introduced through the mouth and advanced to the third part of the duodenum. - The upper GI endoscopy was accomplished without difficulty. - The patient tolerated the procedure well. Findings: - The examined esophagus was normal. - The entire examined stomach was normal. - The examined duodenum was normal. Impression: - Normal esophagus. - Normal stomach. - Normal examined duodenum. - No specimens collected. - No source for upper GI bleeding despite using glucagon to inhibit duodenal motility searching for AVMs. This does not exclude small AVMs nonbleeding of the upper GI tract or AVMs beyond the reach of the scope Recommendation: - Reconsider the recent introduction of Plavix, rule out iron deficiency is playing a role in the severity of his anemia he does have a low MCV at 82. Iron studies have been ordered on pretransfusion blood. If further information or signs of bleeding consider outpatient video capsule endoscopy Procedure Code(s): - 45881, Esophagogastroduodenoscopy, flexible, transoral; diagnostic, including collection of specimen(s) by brushing or washing, when performed (separate procedure) Diagnosis Code(s): - K92.1, Melena (includes Hematochezia) CPT(R) - 2022 copyright [employer]. All Rights Reserved. The CPT codes, CCI edits and ICD codes generated are intended as suggestions and were generated based on input data. These codes are preliminary and upon appeals analyst review may be revised to meet current compliance and payer requirements. The provider is responsible for the final determination of appropriate codes, and modifiers. William De La Torre MD This document has been electronically signed. Note Initiated:12/21/2024 Note Completed:12/21/2024 12:29 PM [id number]
--- NOTE | 2024-12-21 12:32 | Electrocardiogram Report ---
Test Reason : Blood Pressure : */* mmHG Vent. Rate : 58 BPM Atrial Rate : * BPM P-R Int : * ms QRS Dur : 96 ms QT Int : 450 ms P-R-T Axes : * 42 -71 degrees QTcB Int : 441 ms Atrial fibrillation with slow ventricular response Cannot rule out Anterior infarct , age undetermined Abnormal ECG When compared with ECG of 03-Nov-2024 15:21, No significant change was found Confirmed by Bienvenido Kidd ([id number]) on 12/21/2024 12:31:35 PM Referred By: REFERRED SELF Confirmed By: Bienvenido Kidd
--- NOTE | 2024-12-21 12:43 | Anesthesiology Progress Note ---
Date of Service December 21, 2024 Anesthesia Post Procedure Vital Signs Vital Signs: Temp Pulse Pulse Pulse Resp BP BP 12/21/24 12:26 75 20 133/69 12/21/24 11:09 36.6 C 57 L 18 156/68 H 12/21/24 07:56 36.4 C L 64 20 148/68 H 12/21/24 04:34 57 L 12/21/24 04:00 36.7 C 57 L 16 136/59 L 12/20/24 23:56 73 20 132/53 L 12/20/24 22:10 12/20/24 20:02 56 L 12/20/24 19:59 56 L 12/20/24 19:45 36.4 C L 57 L 22 151/62 H 12/20/24 19:00 49 L 22 12/20/24 19:00 126/68 12/20/24 18:30 162/77 H 12/20/24 18:30 57 L 18 12/20/24 18:03 58 L 20 12/20/24 18:00 150/77 H 12/20/24 17:36 63 24 12/20/24 17:30 148/76 H 12/20/24 17:18 51 L 15 12/20/24 17:00 49 L 23 12/20/24 17:00 145/73 H 12/20/24 16:30 151/78 H 12/20/24 16:24 55 L 25 H 12/20/24 16:23 64 12/20/24 16:21 52 L 22 12/20/24 16:08 36.5 C 53 L 17 150/77 H 12/20/24 15:27 36.5 C 61 19 156/81 H 12/20/24 14:57 36.8 C 62 18 152/76 H 12/20/24 14:42 36.8 C 53 L 20 151/70 H 12/20/24 14:40 36.8 C 20 145/70 H 12/20/24 14:26 36.4 C L 61 21 125/65 12/20/24 13:03 59 L 24 12/20/24 13:00 143/63 H 12/20/24 12:57 63 24 Pulse Ox O2 Del Method O2 Flow Rate 12/21/24 12:26 95 Oxymask 5 12/21/24 11:09 95 Room Air 12/21/24 07:56 91 CPAP 12/21/24 04:34 12/21/24 04:00 92 CPAP 12/20/24 23:56 90 CPAP 12/20/24 22:10 Room Air 12/20/24 20:02 12/20/24 19:59 12/20/24 19:45 94 Room Air 12/20/24 19:00 95 Room Air 12/20/24 19:00 12/20/24 18:30 12/20/24 18:30 93 Room Air 12/20/24 18:03 94 12/20/24 18:00 12/20/24 17:36 12/20/24 17:30 12/20/24 17:18 91 12/20/24 17:00 94 Room Air 12/20/24 17:00 12/20/24 16:30 12/20/24 16:24 95 Room Air 12/20/24 16:23 12/20/24 16:21 93 Room Air 12/20/24 16:08 95 0 12/20/24 15:27 94 0 12/20/24 14:57 93 12/20/24 14:42 94 12/20/24 14:40 96 12/20/24 14:26 92 12/20/24 13:03 93 12/20/24 13:00 12/20/24 12:57 94 Transfer of Care Handoff Completed per policy Notes Mental Status: alert / awake / arousable and participated in evaluation Patient Amnestic to Procedure: Yes Nausea / Vomiting: adequately controlled Pain: adequately controlled Airway Patency, RR, SpO2: stable & adequate BP & HR: stable & adequate Hydration State: stable & adequate Anesthetic Complications: no major complications apparent and Pt Satisfied with anesthetic care
[2024-12-21 14:37] LABS: Hemoglobin 8.2 g/dl (14.0-18.0)
[2024-12-21] MEDS: IRON SUCROSE 300 MG in SODIUM CHLORIDE 0.9% 250 ML IV ONE (15:27)
[2024-12-21] MEDS: KETAMINE HCL 10MG/ML SYR ONE (15:30)
[2024-12-21] MEDS: PROPOFOL IV EMULSION 10 MG/ML 20 ML VIAL IV ONE (15:30)
[2024-12-21] MEDS: LIDOCAINE 2% 2 ML VIAL/AMP(20MG/ML) INFIL ONE (15:30)
[2024-12-21] MEDS: BENZOCAINE/TETRACAIN/BUTAM 50 APPLN/5 GM CAN EXT ONE (15:30)
--- NOTE | 2024-12-21 15:57 | Hospitalist Progress Note ---
Date of Service December 21, 2024 Assessment & Plan (1) GI bleed: Plan: He underwent EGD today, December 21. Appreciate gastroenterology consultation recommendations. No significant findings on EGD. 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 Plavix was recently started and has been discontinued. Xarelto also remains on hold for now. He may be a candidate for the Watchman procedure for his chronic atrial fibrillation so he can discontinue the Xarelto completely. He will discuss this with his identification officer. (2) Acute blood loss anemia: Plan: Hemoglobin 7.4 on admission. 1 unit packed red blood cells ordered. Repeat hemoglobin pending (3) Iron deficiency: Plan: Parenteral iron replacement ordered while hospitalized. Oral ferrous sulfate at discharge and going forward (4) CAD (coronary artery disease): Plan: Stable. Continue current medical management. Hold anticoagulants (5) Atrial fibrillation, permanent: Plan: Rate controlled. Xarelto is currently on hold. He probably is a candidate for the Watchman procedure so he can discontinue Xarelto permanently. He will discuss this with his identification officer as an outpatient Plan Hopeful discharge to home tomorrow, December 22, if stable Admission and Anticipated Discharge Date Admission Date: December 20, 2024 Subjective The patient was seen after he underwent EGD today. He is alert and oriented in no acute distress. and son are at the bedside. EGD was negative for any significant findings. He probably has some intestinal AVMs causing the bleeding. He was recently started on Plavix in addition to his aspirin and Xarelto. Plavix has been discontinued. He is iron deficient and has been started on parenteral iron replacement. Creatinine was 1.8 on admission and is down to 1.4. Protonix drip has been switched over to oral Protonix per GI service. He may be a candidate for the Watchman procedure for his chronic atrial fibrillation so he can get off the Xarelto at some point. He will discuss this with his identification officer. If he is stable tomorrow, December 22, he will be discharged to home Review of Systems 2 Review of Systems: Constitutionalno fever or chills ENTno blurred vision, no double vision, no epistaxis, no sore throat Respiratoryno cough, no wheezing, no shortness of breath Cardiacno palpitations, no chest pain, no syncope Jamia nausea, vomiting, diarrhea, hematochezia. He recently developed melenic stool GUno urinary retention, no urinary incontinence, no dysuria, no hematuria Musculoskeletalno joint pain, no muscle tenderness Skinno bruising, no rashes, no pruritus Neurono isolated weakness, no paresthesia. Generalized weakness from anemia Psychno depression, no anxiety Physical Exam 2 Physical Exam: General-alert and oriented x3, no fever, no chills HEENT-head atraumatic and normocephalic, pupils equal and reactive to light, extraocular muscles intact Neck-no lymphadenopathy or thyromegaly, trachea midline Chest-clear to auscultation. No rales, wheezing or rhonchi Cardiac-irregular rhythm consistent with atrial fibrillation. Controlled rate. Normal S1 and S2 Abdomen-normal bowel sounds, no hepatosplenomegaly Extremities-no cyanosis, clubbing, or edema Neuro-cranial nerves II through XII intact, motor and sensory function within normal limits, strength symmetrical, no focal deficits Psych-normal affect, normal mood Results & Data Results & Data Vital Signs (Past 12 Hours) Vital Signs Temp Pulse Pulse Pulse Resp BP Pulse Ox 12/21/24 13:33 36.9 C 67 20 147/61 H 91 12/21/24 12:55 60 20 150/71 H 91 12/21/24 12:41 68 20 138/50 L 92 12/21/24 12:26 75 20 133/69 95 12/21/24 11:09 36.6 C 57 L 18 156/68 H 95 12/21/24 09:30 67 12/21/24 07:56 36.4 C L 64 20 148/68 H 91 12/21/24 04:34 57 L 12/21/24 04:00 36.7 C 57 L 16 136/59 L 92 O2 Del Method O2 Flow Rate 12/21/24 13:33 Room Air 12/21/24 12:55 Room Air 12/21/24 12:41 Room Air 12/21/24 12:26 Oxymask 5 12/21/24 11:09 Room Air 12/21/24 09:30 12/21/24 07:56 CPAP 12/21/24 04:34 12/21/24 04:00 CPAP Laboratory Results 12/21/24 14:16 12/21/24 05:49 PG Care Time/CCT Total # of Minutes Spent Total Time Spent with Patient: Total time spent is greater than 50% in coordination of care (as documented) at patient's floor/unit and/or counseling patient: Coding Level of Care Code 11453 SUB INP/OBS CARE 3/50MIN Diagnoses GI bleed K92.1 GI bleed type/associated pathology: melena Acute blood loss anemia D62 Iron deficiency E61.1 CAD (coronary artery disease) I25.10 Atrial fibrillation, permanent I48.21 (1) GI bleed GI bleed type/associated pathology: melena Qualified Code(s): K92.1 - Melena
[2024-12-21 18:05] LABS: Hematocrit (blood only) 26.8 % (42.0-52.0); Hemoglobin 8.2 g/dl (14.0-18.0)
[2024-12-21] MEDS: PANTOprazole 40 MG TAB PO SCH (20:41)
[2024-12-21 23:37] LABS: Hematocrit (blood only) 25.8 % (42.0-52.0); Hemoglobin 7.9 g/dl (14.0-18.0)
[2024-12-22 06:04] LABS: Hematocrit (blood only) 24.9 % (42.0-52.0); Hemoglobin 7.5 g/dl (14.0-18.0); Mean Corpuscular Hemoglobin 24.8 pg (25.0-34.0); Mean Corpuscular Hgb Conc 30.1 g/dL (32.0-36.0); Mean Corpuscular Volume 82.2 fL (80.0-100.0); Mean Platelet Volume 9.9 fL (9.4-12.4); Platelet Count 236 K/uL (130-400); RDW Coefficient of Variation 17.5 % (11.5-14.5); Red Blood Count 3.03 M/uL (4.70-6.10); White Blood Count 6.68 K/ul (4.8-10.8)
[2024-12-22 06:27] LABS: Calcium 8.2 mg/dl (8.6-10.3); Potassium 3.4 mmol/L (3.5-5.1)
[2024-12-22 06:33] LABS: BUN Creatinine Ratio 23.8 (10-20); Creatinine Clr Calc Pharmacy 68.8 ml/min
--- NOTE | 2024-12-22 06:59 | Communication Note ---
Date of Service: December 22, 2024 Patient is iron deficient likely contributing to severity of anemia, also suggest occult GI bleeding chronically. Suspect addition of plavix exxagerbated. Start iron.
[2024-12-22 07:57] VITALS: BP 161/83; RESP 20; TEMP 97.9; O2SAT 93
[2024-12-22] MEDS: POTASSIUM CHLORIDE CRTAB 20 MEQ TABCR PO STA (08:29)
[2024-12-22] MEDS: FERROUS SULFATE 325 MG TAB PO SCH (08:33)
[2024-12-22] MEDS: IRON SUCROSE 200 MG in SODIUM CHLORIDE 0.9% 100 ML IV ONE (08:42)
[2024-12-22 09:26] VITALS: PULSE 66
--- NOTE | 2024-12-22 11:58 | Discharge Summary ---
Discharge Summary Date of Service December 22, 2024 Principal Dx & Hospital Course #1 = Principal Diagnosis (1) GI bleed: He underwent EGD today, December 21. Appreciate gastroenterology consultation recommendations. No significant findings on EGD. 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 Plavix was recently started and has now been discontinued. Xarelto has also been discontinued and he has been switched to Eliquis which will start in 1 week. He may be a candidate for the Watchman procedure for his chronic atrial fibrillation so he can discontinue the systemic anticoagulants completely. He will discuss this with his security advisor. (2) Acute blood loss anemia: Hemoglobin 7.4 on admission. He received 1 unit packed red blood cells. Hemoglobin is low but stable. No further GI bleeding. (3) Iron deficiency: Parenteral iron replacement ordered while hospitalized. Oral ferrous sulfate at discharge and going forward (4) CAD (coronary artery disease): Stable. Continue current medical management. Xarelto has been switched to Eliquis which she will start in 1 week. (5) Atrial fibrillation, permanent: Rate controlled. Xarelto has been discontinued. He will start Eliquis in 1 week. He might be a candidate for the Watchman procedure so he can discontinue systemic anticoagulation permanently. 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 And denies epigastric pain Discharge Exam General-alert and oriented x3, no fever, no chills HEENT-head atraumatic and normocephalic, pupils equal and reactive to light, extraocular muscles intact Neck-no lymphadenopathy or thyromegaly, trachea midline Chest-clear to auscultation. No rales, wheezing or rhonchi Cardiac-irregular rhythm consistent with atrial fibrillation. Controlled rate. Normal S1 and S2 Abdomen-normal bowel sounds, no hepatosplenomegaly Extremities-no cyanosis, clubbing, or edema Neuro-cranial nerves II through XII intact, motor and sensory function within normal limits, strength symmetrical, no focal deficits Psych-normal affect, normal mood Discharge Plan Discharge Items Patient Disposition: Home - Self-Care Reason For Visit: MELANOTIC STOOL Discharge Diagnosis: Upper GI bleed, acute blood loss anemia, iron deficiency, hypokalemia Condition on Discharge: Good Activity: Resume your previous activity Non-emergency contact: Primary Care Provider and Showroom Consultant Call non-emergency contact if: your symptoms worsen Follow-up/Referrals: Feroz Moore PA-C [Primary Care Provider] - Diet: Carb Consistent or DM2 and Heart Healthy Addtl Attending Provider Instructions: Eliquis replaces Xarelto. Stay off Eliquis for 1 week. Plavix (clopidogrel) has been discontinued permanently. Take ferrous sulfate twice daily for continued iron replacement. Prescriptions for Eliquis and ferrous sulfate have been sent to [facility] pharmacy in [place]. See your primary care provider and security advisor as soon as possible Pending Studies at Discharge: No Stand-Alone Forms: My [facility] Data, Smoking Cessation Medications and DC Order Prescriptions: New ferrous sulfate 325 mg (65 mg iron) Tablet,Delayed Release (Dr/Ec) 325 mg PO BIDM Qty: 60 0RF Eliquis 5 mg tablet 5 mg PO BID Qty: 60 0RF Continued amlodipine 10 mg tablet 10 mg PO DAILY Qty: 30 5RF furosemide 40 mg tablet 40 mg PO DAILY PRN (Reason: shortness of breath) Qty: 30 1RF aspirin [Adult Low Dose Aspirin] 81 mg tablet,delayed release (DR/EC) 81 mg PO DAILY Qty: 30 11RF Centrum Silver Men [id number] mcg tablet 1 tab PO DAILY atorvastatin 10 mg Tablet 10 mg PO QAM metoprolol succinate 100 mg Tablet Extended Release 24 Hr 100 mg PO QAM losartan-hydrochlorothiazide [Hyzaar] 100-25 mg Tablet 1 tab PO QAM tamsulosin [Flomax] 0.4 mg Capsule 0.4 mg PO QAM metformin 1,000 mg Tablet 1,000 mg PO BID oxybutynin chloride [Ditropan XL] 5 mg Tablet Extended Release 24hr 5 mg PO QAM pyridoxine (vitamin B6) [Vitamin B-6] 100 mg Tablet 100 mg PO QAM glipizide 10 mg tablet extended release 24hr 20 mg PO DAILY isosorbide mononitrate 30 mg tablet extended release 24 hr 30 mg PO DAILY Qty: 30 6RF Discontinued clopidogrel 75 mg tablet 75 mg PO DAILY Qty: 90 3RF Xarelto 20 mg tablet 0 mg PO PM Rx Instructions: WAS ON 20 MG NO RECENT FILL SINCE 04/2024. UNABLE TO VERIFY WITH PT Discharge Orders: Discharge Order (Routine); Ordered 12/22/24 Ordered By: Romaine Chavez/Other Patient Handouts: High Blood Sugar (Hyperglycemia), Hypoglycemia (Low Blood Sugar), Managing Type 2 Diabetes Admission Data Admit Date/Time: 12/20/24 18:03 Attending Provider: Romaine Benson Admit Provider: Renetta Gould Primary Care Provider: Feroz Moore Other Providers: Renetta Gould; William De La Torre Other Interventions: Discharge Summary Assessment (RN) Last Done: 12/21/24 12:53 Hospital Stay Data Consultations 12/20/24 12:27 ED Decision to Admit Stat 12/20/24 17:40 Consult Gastroenterology Stat Procedures Performed Operation Date: 12/21/24 16:45 Actual Procedures p Esophagogastroduodenoscopy - William De La Torre MD Pending Results Patient Have Any Pending Studies at Discharge: No Discharge Instructions Given to Patient (Per Discharging Provider) Eliquis replaces Xarelto. Stay off Eliquis for 1 week. Plavix (clopidogrel) has been discontinued permanently. Take ferrous sulfate twice daily for continued iron replacement. Prescriptions for Eliquis and ferrous sulfate have been sent to [facility] pharmacy in [place]. See your primary care provider and security advisor as soon as possible Total Time Total Time Spent Total Time Spent (In Minutes): 45 minutes Coding Level of Care Code 20104 INP/OBS DISCH >30 MIN Diagnoses GI bleed K92.1 GI bleed type/associated pathology: melena Acute blood loss anemia D62 Iron deficiency E61.1 CAD (coronary artery disease) I25.10 Atrial fibrillation, permanent I48.21
== END 2024-12-22 13:08 | disposition home or self-care (01) | DRG 378 ==
LOC: ED 10:36 → 2E 18:03 → SUATTDRO 18:03 → 2E 19:12

== ENCOUNTER 2025-04-01 11:01 | Inpatient (IN) ==
--- NOTE | 2025-04-01 11:48 | XRay Report ---
XR chest 1V portable CLINICAL HISTORY: Chest pain, nonspecific COMPARISON STUDY: 01/15/2025 FINDINGS: Stable moderate cardiomegaly with mild pulmonary vascular congestion. No consolidation or p leural effusion seen. No pneumothorax. IMPRESSION: Mild CHF. ACT 112: Negative or not required by law. Electronically signed by: Kee Kathleen M.D. 04/01/2025 11:46 AM
[2025-04-01 12:08] LABS: Alanine Aminotransferase 10.0 U/L (7-52); Albumin Globulin Ratio 1.3 (0.9-2); Alkaline Phosphatase 77.0 U/L (34-104); Anion Gap 8.0 (3-11); Bilirubin,Total 0.7 mg/dl (0.2-1.0); Blood Urea Nitrogen 51.0 mg/dl (6-23); Calcium 8.6 mg/dl (8.6-10.3); Carbon Dioxide 27.0 mmol/L (21-32); Chloride 103.0 mmol/L (98-107); Creatinine Clr Calc Pharmacy 36.2 ml/min; Globulin 3.1 gm/dl (2.5-4.0); Glucose 277.0 mg/dl (70-99(Fasting)); Potassium 4.3 mmol/L (3.5-5.1); Sodium 138.0 mmol/L (136-145); Total Protein 7.0 gm/dl (6.0-8.3)
[2025-04-01 12:18] LABS: INR 1.2 (0.9-1.1); Partial Thromboplastin Time 28 Seconds (21-31); Prothrombin Time 12.4 Seconds (9.0-12.0)
[2025-04-01 12:34] LABS: Hematocrit (blood only) 22.5 % (42.0-52.0); Hemoglobin 6.7 g/dl (14.0-18.0); Mean Corpuscular Hemoglobin 24.0 pg (25.0-34.0); Mean Corpuscular Volume 80.6 fL (80.0-100.0); Platelet Count 292 K/uL (130-400); RDW Standard Deviation 50.2 fL (36.4-46.3); Red Blood Count 2.79 M/uL (4.70-6.10); White Blood Count 6.39 K/ul (4.8-10.8)
[2025-04-01 12:35] LABS: Hypochromasia Present; Immature Granulocytes # (auto) 0.03 K/uL (0.01-0.20); Immature Granulocytes % (auto) 0.5 %; Polychromasia 1+
--- NOTE | 2025-04-01 12:40 | Emergency Department Note ---
Impression & Plan Anemia, Fluid overload, ARGUETA (dyspnea on exertion), Acute kidney injury superimposed on CKD ED Provider Note Provider: Juan J Sanderson MD CHIEF COMPLAINT: Short of breath, swelling, weak HISTORY OF PRESENT ILLNESS: Patient is a 75-year-old gentleman past medical history significant for CAD, hypertension, atrial fibrillation, type 2 diabetes, admission in December for anemia and GI bleed presenting here today with with complaints of left several months of having increasing fatigue and shortness of breath with exertion. Feeling lightheaded at times. Evidently tripped and fell in the bathroom last night because of on his hands and landed on his knees. Did not strike his head. Denies any headache. States walking 15 to 20 feet he gets short of breath. Denies chest pain. Denies significant injury to his arms and legs from the fall. Has been following closely with cardiology and had some kidney issues recently and they decreased his Bumex but with increased swelling they increased it again a week or 2 ago and it has not helped. He is urinating a good bit. Occasionally some darker stools but no bloody stools. No epistaxis. Was transfused for his GI bleed in December and switch from Xarelto and Plavix to Eliquis which he states he ran out of on Saturday and just got the prescription refilled. PAST MEDICAL HISTORY: As noted above MEDICATIONS: Reviewed home indications SOCIAL HISTORY: , long-fast food delivery driver PHYSICAL EXAM: GENERAL: alert and oriented in no acute distress on stretcher Head: normocephalic and atraumatic EYES: No injection, discharge or icterus. EOMI. NECK: Trachea midline. Supple. ENT: Mucous membranes pink and moist. LUNGS: Airway patent. No retractions. Breath sounds some crackles in the bases HEART: Irregular irregular rate and rhythm. No chest wall tenderness ABDOMEN: Soft and non-tender, without guarding or rebound. Rectal: With nurse subway conductor with brown stool Hemoccult negative. No hemorrhoids appreciated. SKIN: Acyanotic, warm, dry, without rashes EXTREMITIES: With 1-2+ lower extremity edema. No significant tenderness of the hand/wrist bilaterally or the bilateral knees. NEUROLOGICAL: No focal deficits. No aphasia. No facial droop or slurred speech. Ambulatory. EK bpm atrial fibrillation. No acute ST segment elevation with some nonspecific T wave flattening T wave changes. QTc 430. CONTINUOUS CARDIAC MONITORING: was ordered and showed a heart rate of 50s to 70s bpm in atrial fibrillation Patient's laboratory studies and imaging reviewed. Differential includes Reactive airway disease, pneumonia, pneumothorax, COPD, CHF, infections, cardiac ischemia, pulmonary embolism, musculoskeletal, gastrointestinal, as well as other pathologies. IMPRESSION/MEDICAL DECISION MAKING: Patient here with weakness and increased swelling refractory to increased Bumex dosing. Does not appear to suffered a significant head trauma. Doubt acute cranial bleed. Has not been on Eliquis due to refill although states he has to get it from the pharmacy. Patient is noted some darker stools. Has been short of breath particular with exertion. Reviewed prior medical history in the computer. EKG here without STEMI and rate controlled A-fib. Denies significant infectious symptoms and no fever reported. Not hypoxic here. Blood work completed here however shows significant anemia hemoglobin 6.7. Patient consented for blood and 1 unit of packed red blood cells ordered. Iron panel is sent. Chemistry/electrolytes without findings of troponin elevation. No significant electrolyte abnormality but BUN elevated 51 and creatinine 2.41. Increase from baseline. Seems to have some component of fluid overload on the chest x-ray as well as clinically. Some part of this may be related to his anemia. Has been on increased dose of Bumex without improvement. Will transfuse with blood and ordered an IV dose of Bumex here. Will have to be monitored for fluid overload. Prior workup with EGD reassuring in December. Doubt this represents upper GI bleed. They previously postulated it could be AVM intestinal bleed. Hemoccult negative however at this time. Do not see hemorrhoid. Will give one-time dose of Protonix. Given his symptomatic anemia, underlying cardiac conditions, and signs of fluid overload and worsening renal function on diuretics discussed with him and his plan to stay for further care and evaluation. Patient denies symptoms of urinary retention. Hospitalist team was consulted for evaluation and further care. DIAGNOSIS: Weakness, dyspnea on exertion, anemia, fluid overload DISPOSITION: Hospitalist will evaluate Patient was agreeable with this plan. Critical Care I have personally spent 33 minutes of critical care time in the direct management of this patient. This includes bedside care, interpretation of diagnostic studies, and testing, discussion with consultants, patient, and family members, and other required patient management activities. These 33 minutes is in excess of all separately billable procedures. Past Med/Surg History Problem List (Updated 04/01/25 @ 14:29 by Jem Holguin MD) Symptomatic anemia Acute kidney injury superimposed on CKD (Acute) ARGUETA (dyspnea on exertion) (Acute) Fluid overload (Acute) Anemia (Acute) Mitral regurgitation Pulmonary hypertension Acute on chronic heart failure with preserved ejection fraction (HFpEF) Morbid obesity with BMI of 40.0-44.9, adult Hyperlipidemia Type 2 diabetes mellitus Iron deficiency Acute blood loss anemia GI bleed (Acute) Hypercholesterolemia LVH (left ventricular hypertrophy) Encounter for pre-operative examination Hypertension Medical History (Updated 04/01/25 @ 14:29 by Jem Holguin MD) CAD (coronary artery disease) Atrial fibrillation, permanent ZECHARIAH (obstructive sleep apnea) Bipap Lipoma of skin and subcutaneous tissue of neck Osteoarthritis Atrial fibrillation Surgical History Hx of total knee arthroplasty Hx of colonoscopy History of tonsillectomy History of nasal septoplasty Family History Mother Diabetes Father Diabetes Social History Smoking Status: Never smoker Tobacco Type: Smokeless Tobacco (Dip or Chew) Second Hand Exposure: No; Do You Dip or Chew Tobacco: No; Hx Alcohol Use: No Hx Substance Use: No Preferred Language: Kyrgyz Communication Ability: Effective Social Problems Specialist Required: No Beliefs That Will Affect Care: None Current Living Situation: Spouse Other Information That Helps Us Care for You: No Feels Safe at Home: Yes Safety Concerns: Feels Safe At This Time Assistive Devices: BiPap Allergies Allergies Allergy/AdvReac Type Severity Reaction Status Date / Time No Known Allergies Allergy Verified 04/01/25 13:26 Home Meds Home Medications Medication Instructions Recorded Confirmed atorvastatin 10 mg tablet 10 mg PO QAM 05/07/18 04/01/25 pyridoxine (vitamin B6) 100 mg 100 mg PO QAM 05/07/18 04/01/25 tablet (Vitamin B-6) tamsulosin 0.4 mg capsule (Flomax) 0.4 mg PO QAM 05/07/18 04/01/25 [id number] 300 mcg-K 60 1 tab PO DAILY 10/30/24 04/01/25 mcg-lycop 600 mcg-lutein 300 mcg tablet (Centrum Silver Men) metoprolol succinate 100 mg 200 mg PO QAM 12/30/24 04/01/25 tablet,extended release 24 hr blood-glucose sensor (Dexcom G7 01/15/25 03/19/25 Sensor device) blood-glucose,sample room supervisor,cont 01/15/25 03/19/25 (Dexcom G7 Curriculum Coach) bumetanide 2 mg tablet 2 mg PO BID 02/16/25 04/01/25 insulin glargine 100 unit/mL (3 45 unit subcut QPM 04/01/25 04/01/25 mL) subcutaneous pen (Lantus Solostar U-100 Insulin) oxybutynin chloride 5 mg 5 mg PO DAILY 04/01/25 04/01/25 tablet,extended release 24 hr Previous Rx's Medication Instructions Recorded aspirin 81 mg tablet,delayed 81 mg PO DAILY #90 tabs 12/30/24 release (Adult Low Dose Aspirin) pen needle, diabetic 32 gauge x #100 ea 01/01/25" (Linn 2nd Gen Pen Needle) apixaban 5 mg tablet (Eliquis) 5 mg PO BID #60 tabs 01/05/25 amlodipine 10 mg tablet 10 mg PO DAILY #90 tabs 01/07/25 ranolazine 500 mg tablet,extended 500 mg PO BID #180 tabs 01/27/25 release,12 hr isosorbide mononitrate 30 mg 30 mg PO DAILY #90 tabs 02/10/25 tablet,extended release 24 hr losartan 100 mg tablet 100 mg PO DAILY #90 tabs 02/16/25 Results & Data (ED) Vital Signs Vital Signs - 24 hr 04/01/25 11:04 04/01/25 11:33 04/01/25 11:33 Temperature 36.3 C L Temperature Source Temporal Artery Scan Pulse Rate 64 Pulse Rate [Apical] 63 63 Respiratory Rate 18 16 16 Respiratory Effort / Characteristics Non-Labored Spontaneous Non-Labored Spontaneous Non-Labored Spontaneous Respiratory Depth Normal Normal Normal Respiratory Pattern Regular Blood Pressure 127/66 Blood Pressure [Right Arm] 160/80 H 160/80 H Blood Pressure Mean 86 Blood Pressure Mean [Right Arm] 106 106 Pulse Oximetry 94 96 96 Oxygen Delivery Method Room Air Room Air Room Air Sepsis Recent Fever Within 48 Hours No Sepsis New/Unexplained Change in Mental Status N/A Sepsis Action Taken by Nursing No Action Required 04/01/25 11:33 04/01/25 11:33 04/01/25 12:01 Temperature Temperature Source Pulse Rate 63 Pulse Rate [Apical] 68 Respiratory Rate 16 16 Respiratory Effort / Characteristics Non-Labored Spontaneous Respiratory Depth Normal Respiratory Pattern Blood Pressure Blood Pressure [Right Arm] 152/71 H Blood Pressure Mean Blood Pressure Mean [Right Arm] 98 Pulse Oximetry 96 96 94 Oxygen Delivery Method Room Air Room Air Room Air Sepsis Recent Fever Within 48 Hours Sepsis New/Unexplained Change in Mental Status Sepsis Action Taken by Nursing Laboratory Data 04/01/25 11:21 04/01/25 11:21 Lab Results 04/01/25 04/01/25 Range/Units 11:21 12:50 WBC 6.39 (4.8-10.8) K/ul RBC 2.79 L (4.70-6.10) M/uL Hgb 6.7 L* (14.0-18.0) g/dl Hct 22.5 L (42.0-52.0) % MCV 80.6 (80.0-100.0) fL MCH 24.0 L (25.0-34.0) pg MCHC 29.8 L (32.0-36.0) g/dL RDW Std Deviation 50.2 H (36.4-46.3) fL RDW Coeff of Steven 17.1 H (11.5-14.5) % Plt Count 292 (130-400) K/uL MPV 9.8 (9.4-12.4) fL Immature Gran % (Auto) 0.5 % Neut % (Auto) 68.8 % Lymph % (Auto) 17.7 % Letcher % (Auto) 10.2 % Eos % (Auto) 2.2 % Baso % (Auto) 0.6 % Neut # (Auto) 4.40 (1.40-6.50) K/uL Lymph # (Auto) 1.13 L (1.20-3.40) K/uL Letcher # (Auto) 0.65 H (0.11-0.59) K/uL Eos # (Auto) 0.14 (0.00-0.50) K/uL Baso # (Auto) 0.04 (0.00-0.20) K/uL Immature Gran # (Auto) 0.03 (0.01-0.20) K/uL Polychromasia 1+ Hypochromasia Present PT 12.4 H (9.0-12.0) Seconds INR 1.2 H (0.9-1.1) APTT 28 (21-31) Seconds PTT Ratio 1.0 Sodium 138 (136-145) mmol/L Potassium 4.3 (3.5-5.1) mmol/L Chloride 103 (98-107) mmol/L Carbon Dioxide 27 (21-32) mmol/L Anion Gap 8 (3-11) BUN 51 H (6-23) mg/dl Creatinine 2.41 H (0.6-1.4) mg/dl Est Cr Clr Drug Dosing 36.2 ml/min eGFR 27.31 BUN/Creatinine Ratio 21.2 H (10-20) Glucose 277 H (70-99(Fasting)) mg/dl Calcium 8.6 (8.6-10.3) mg/dl Iron 15 L (35-175) mcg/dl TIBC 566 H (250-450) mcg/dl Transferrin 404 H (200-360) mg/dl Transferrin % Sat 3 L (20-50) % Ferritin 11.6 (8-388) ng/ml Total Bilirubin 0.7 (0.2-1.0) mg/dl AST 17 (13-39) U/L ALT 10 (7-52) U/L Alkaline Phosphatase 77 (34-104) U/L Troponin I High Sens 9.2 (0-20) pg/ml B-Natriuretic Peptide 384 H (0-100) pg/ml Total Protein 7.0 (6.0-8.3) gm/dl Albumin 3.9 (3.4-5.0) gm/dl Globulin 3.1 (2.5-4.0) gm/dl Albumin/Globulin Ratio 1.3 (0.9-2) Blood Type B Positive Antibody Screen NEGATIVE Crossmatch See Detail Imaging Data Radiologist's Impression: Chest X-Ray 04/01/25 11:14 XR chest 1V portable CLINICAL HISTORY: Chest pain, nonspecific COMPARISON STUDY: 01/15/2025 FINDINGS: Stable moderate cardiomegaly with mild pulmonary vascular congestion. No consolidation or pleural effusion seen. No pneumothorax. IMPRESSION: Mild CHF. ACT 112: Negative or not required by law. Electronically signed by: Kee Kathleen M.D. 04/01/2025 11:46 AM Discharge Plan Visit Data Chief Complaint: Illness Stated Complaint: LIGHTHEADED, FALLING TROUBLE BREATHING, INJURY AUBRIE ED Provider: Juan J Sanderson Discharge Problem: Anemia, Fluid overload, ARGUETA (dyspnea on exertion), Acute kidney injury superimposed on CKD Patient Disposition: Admitted As Inpatient Condition: Fair Discharge Instructions Interventions: ED Discharge Assessment Last Done: 04/01/25 13:57
[2025-04-01] MEDS ORDERED: SODIUM CHLORIDE 0.9% 100 ML IV PRN (13:06)
[2025-04-01] MEDS ORDERED: PANTOprazole 40 MG/10 ML SYR IV ONE (13:06)
[2025-04-01] MEDS ORDERED: PHARMACY GLYCEMIC MGMT CONSULT PRN (13:16)
[2025-04-01] MEDS ORDERED: ACETAMINOPHEN 325 MG TAB PO PRN (13:19)
[2025-04-01 13:20] LABS: Iron 15.0 mcg/dl (35-175); Transferrin 404.0 mg/dl (200-360)
[2025-04-01] MEDS ORDERED: DEXTROSE 50% 50 ML SYRINGE IV PRN (13:30)
[2025-04-01] MEDS ORDERED: GLUCOSE 40% GEL 15 GM TUBE PO PRN (13:30)
[2025-04-01] MEDS ORDERED: GLUCAGON FOR INJ 1 MG VIAL SQ PRN (13:30)
[2025-04-01] MEDS ORDERED: CARBOHYDRATES FOR HYPOGLYCEMIA PO PRN (13:30)
[2025-04-01] MEDS ORDERED: GLUCOSE 10 TAB/TUBE PO PRN (13:30)
[2025-04-01 13:39] LABS: Ferritin 11.6 ng/ml (8-388)
[2025-04-01 13:40] LABS: Total Iron Binding Cap Calc 566.0 mcg/dl (250-450); Transferrin (FE) Percent Satur 3.0 % (20-50)
--- NOTE | 2025-04-01 14:31 | Pharmacy Report ---
Pharmacy Glycemic Short Note 2 - Date of Service April 01, 2025 - Glycemic Short BSG Results (Last 24 hours): 04/01/25 11:21 Glucose 277 H OUTPATIENT ANTIDIABETIC REGIMEN: * Lantus 45 units SC HS HbA1c: 7.7% (12/21/24, reordered for 04/02/25 ASSESSMENT: * SS is a 75 year old male who presented to ED with increased fatigue and shortness of breath on exertion over past several months and fall last evening * Patient on basal insulin only as an outpatient - will plan to transition to 50/50 SC basal/bolus while inpatient * Blood sugar on presentation is 277 mg/dL, last dose of Lantus reported as last evening (45 units) * DM 2 diet ordered PLAN FOR INPATIENT GLYCEMIC CONTROL: * Basal insulin * Lantus 10-15-20 units SQ HS * Bolus insulin * NovoLog per scale ACHS or Q6hrs while NPO * Goal Range: Low 120 mg/dL - High 160 mg/dL * Correction Factor: 25 mg/dL/unit * Nutritional / Prandial insulin per carb ratio of 1 unit per 8 grams CHO consumed
--- NOTE | 2025-04-01 14:35 | History & Physical Report ---
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 (2) Acute on chronic heart failure with preserved ejection fraction (HFpEF): Plan: -CXR showing mild CHF -bumex 2mg IV BID -echo -cardiology consulted (3) Acute kidney injury superimposed on CKD: Plan: -cr 2.41 bumex recently increased -will con't bumex for now -nephrology consulted for recommendations (4) Type 2 diabetes mellitus: Plan: -lantus -pharm consult for glycemic management (5) Hypertension: Plan: -isosorbide -metoprolol (6) Hypercholesterolemia: Plan: -atorvastatin (7) Atrial fibrillation, permanent: Plan: -eliquis on hold 2nd to anemia -pt to consider watchman procedure to prevent futher bleeding on anticoagulation Admission and Anticipated Discharge Date Admission Date: April 01, 2025 History of Present Illness Chief Complaint: SOB, lethargy Primary Care Provider: Feroz Moore PA-C Pt is a 75 y/o male with pmh of HTN, atrial fib on eliquis, CAD, DM, recent GI bleed, who presents with several months of fatigue, SOB, and lightheadedness.Pt denies any dark stools or bleeding. Pt states he ran out of his eliquis on Saturday and has not been taking it since. He does also follow up with cardiology and nephrology and recently had his Bumex increased due to lower ext swelling. In the ER he labs showed heme 6.7, with cr of 2.41, slighly elevated from his last 2.01. His CXR showed mild CHF. He was transfused 1 unit PRBC in the ER and given a dose of bumex. Pt will be admitted for further work up of his symptomatic anemia, acute on chronic KD, and CHF exacerbation. Allergies Allergy/AdvReac Type Severity Reaction Status Date / Time No Known Allergies Allergy Verified 04/01/25 13:26 Home Medications Medication Instructions Recorded Confirmed Type atorvastatin 10 mg tablet 10 mg PO QAM 05/07/18 04/01/25 History pyridoxine (vitamin B6) 100 mg 100 mg PO QAM 05/07/18 04/01/25 History tablet (Vitamin B-6) tamsulosin 0.4 mg capsule (Flomax) 0.4 mg PO QAM 05/07/18 04/01/25 History mspifagy-iq-hdres 300 mcg-K 60 1 tab PO DAILY 10/30/24 04/01/25 History mcg-lycop 600 mcg-lutein 300 mcg tablet (Centrum Silver Men) aspirin 81 mg tablet,delayed 81 mg PO DAILY #90 tabs 12/30/24 04/01/25 Rx release (Adult Low Dose Aspirin) metoprolol succinate 100 mg 200 mg PO QAM 12/30/24 04/01/25 History tablet,extended release 24 hr pen needle, diabetic 32 gauge x #100 ea 01/01/25 03/19/25 Rx " (Linn 2nd Gen Pen Needle) apixaban 5 mg tablet (Eliquis) 5 mg PO BID #60 tabs 01/05/25 04/01/25 Rx amlodipine 10 mg tablet 10 mg PO DAILY #90 tabs 01/07/25 04/01/25 Rx blood-glucose sensor (Dexcom G7 01/15/25 03/19/25 History Sensor device) blood-glucose,hose builder,cont 01/15/25 03/19/25 History (Dexcom G7 Chlorination Operator) ranolazine 500 mg tablet,extended 500 mg PO BID #180 tabs 01/27/25 04/01/25 Rx release,12 hr isosorbide mononitrate 30 mg 30 mg PO DAILY #90 tabs 02/10/25 04/01/25 Rx tablet,extended release 24 hr bumetanide 2 mg tablet 2 mg PO BID 02/16/25 04/01/25 History losartan 100 mg tablet 100 mg PO DAILY #90 tabs 02/16/25 04/01/25 Rx insulin glargine 100 unit/mL (3 45 unit subcut QPM 04/01/25 04/01/25 History mL) subcutaneous pen (Lantus Solostar U-100 Insulin) oxybutynin chloride 5 mg 5 mg PO DAILY 04/01/25 04/01/25 History tablet,extended release 24 hr Past Med/Surg History Problem List (Updated 04/01/25 @ 14:29 by Jem Holguin MD) Symptomatic anemia Acute kidney injury superimposed on CKD (Acute) ARGUETA (dyspnea on exertion) (Acute) Fluid overload (Acute) Anemia (Acute) Mitral regurgitation Pulmonary hypertension Acute on chronic heart failure with preserved ejection fraction (HFpEF) Morbid obesity with BMI of 40.0-44.9, adult Hyperlipidemia Type 2 diabetes mellitus Iron deficiency Acute blood loss anemia GI bleed (Acute) Hypercholesterolemia LVH (left ventricular hypertrophy) Encounter for pre-operative examination Hypertension Medical History (Updated 04/01/25 @ 14:29 by Jem Holguin MD) CAD (coronary artery disease) Atrial fibrillation, permanent ZECHARIAH (obstructive sleep apnea) Bipap Lipoma of skin and subcutaneous tissue of neck Osteoarthritis Atrial fibrillation Surgical History Hx of total knee arthroplasty Hx of colonoscopy History of tonsillectomy History of nasal septoplasty Family History Mother Diabetes Father Diabetes Social History Smoking Status: Never smoker Tobacco Type: Smokeless Tobacco (Dip or Chew) Second Hand Exposure: No; Do You Dip or Chew Tobacco: No; Hx Alcohol Use: Yes Alcohol type: beer Hx Substance Use: No Preferred Language: [place]orese Communication Ability: Effective Medicaid Collection Specialist Required: No Beliefs That Will Affect Care: None Current Living Situation: Spouse Feels Safe at Home: Yes Assistive Devices: BiPap, Cane, Walker and Wheelchair Review of Systems Review of Systems: CONST: Positive fatigue, Negative for fever, body aches and chills. HENT: Negative for neck pain/stiffness, headache, congestion, sore throat, swelling. EYES: Negative for discharge/pain or vision changes. RESP: Negative for cough/hemoptysis and Positive shortness of breath. CV: Negative chest pain, difficulty breathing, palpitations. ABD: Negative pain, nausea, vomiting. : Negative increase frequency, dysuria, blood in urine or stool. MUSC: Negative for muscle aches, edema. SKIN: Negative rash, lesions/sores. NEURO: Negative headache, dizziness, weakness. Physical Exam Physical Exam: GENERAL APPEARANCE NAD, activity normal for age, well developed/ well nourished, no cyanosis, pallor, or diaphoresis. EYES lids/conjunctiva normal. EARS/NOSE/THROAT Mucous membranes moist, nares normal, lips/teeth normal uvula midline without oral pharyngeal erythema, exudate or swelling TMs normal bilaterally. No lymphangitis/lymphedema. HEAD/NECK normocephalic atraumatic, no facial trauma, neck is supple. RESPIRATORY respiratory effort normal, speaks in full sentences, no tripod position, no accessory muscle use. Lungs clear to auscultation without rhonchi, wheezes, rales CARDIAC Regular rate and rhythm, no edema. ABDOMINAL Soft, ND/NT. No evidence of fluid wave. No pulsatile masses on exam, rebound tenderness, Crawley sign or pain over Mcburney's point. MUSCLES/EXTREMITIES No abnormal range of motion, 2+ edema b/l lower ext SKIN Warm, pink and dry. No rashes, dermatoses, petechiae or lesions. NEUROLOGICAL Speech is clear and appropriate. Normal level of consciousness. Gait and coordination are normal. 5/5 strength in all extremities. PSYCH Normal mood and affect. Judgement/competence is appropriate Results & Data Results & Data Vital Signs (Past 12 Hours) Vital Signs Temp Pulse Pulse Resp BP BP Pulse Ox 04/01/25 12:01 68 16 152/71 H 94 04/01/25 11:33 63 16 96 04/01/25 11:33 96 04/01/25 11:33 63 16 160/80 H 96 04/01/25 11:33 63 16 160/80 H 96 04/01/25 11:04 36.3 C L 64 18 127/66 94 O2 Del Method 04/01/25 12:01 Room Air 04/01/25 11:33 Room Air 04/01/25 11:33 Room Air 04/01/25 11:33 Room Air 04/01/25 11:33 Room Air 04/01/25 11:04 Room Air PG Care Time/CCT Total # of Minutes Spent Total Time Spent with Patient: Total time spent is greater than 50% in coordination of care (as documented) at patient's floor/unit and/or counseling patient: Coding Level of Care Code 12750 INT INP/OBS CARE 2MIN Diagnoses Symptomatic anemia D64.9 Acute on chronic heart failure with preserved ejection fraction (HFpEF) I50.33 Acute kidney injury superimposed on CKD N17.9; N18.9 Type 2 diabetes mellitus with other circulatory complication, without long-term current use of insulin E11.59 Diabetes mellitus complication detail: with other circulatory complications Diabetes mellitus complication status: with circulatory complication Diabetes mellitus intermediate insulin use: without prefitter use Primary hypertension I10 Hypertension type: primary hypertension Hypercholesterolemia E78.00 Atrial fibrillation, permanent I48.21 (4) Type 2 diabetes mellitus Diabetes mellitus complication detail: with other circulatory complications Diabetes mellitus complication status: with circulatory complication Diabetes mellitus intermediate insulin use: without intermediate use Qualified Code(s): E11.59 - Type 2 diabetes mellitus with other circulatory complications (5) Hypertension Hypertension type: primary hypertension Qualified Code(s): I10 - Essential (primary) hypertension
--- NOTE | 2025-04-01 17:15 | Nephrology Consultation ---
Date of Consultation April 01, 2025 Assessment & Plan (1) Acute kidney injury superimposed on CKD: * JOSSIE on CKD due to reduced effective arterial volume from GI blood loss in the setting of NACHO inhibitor therapy * Stop NACHO/ARB * Agree with blood transfusion. Patient has been off apixaban for approximately 48 hours * IV Bumex given in the EMD to avoid TACO * Monitor I&O, daily BMP, H&H * Will order renal ultrasound, urinalysis with microscopy, MACR (2) Symptomatic anemia: (3) Hypertension: (4) Atrial fibrillation: (5) CAD (coronary artery disease): (6) Type 2 diabetes mellitus: History of Present Illness Reason for Consultation: JOSSIE/CKD Attending Physician: Jem Holguin MD History of Present Illness Mr. Amos is a 75-year-old white male who is seen at the request of the [facility] hospitalist service for evaluation of JOSSIE/CKD. Information for the HPI is obtained from direct patient interview and review of the EMR. HPI is summarized as follows: Mr. Amos has not undergone nephrology evaluation in the past. Review of the EMR shows that his serum creatinine has been quite variable depending upon his volume status. His medical history is significant for HTN, atrial fibrillation (apixaban), ASCVD, AODM, recent GI bleed (01/03 EGDno source of bleeding identified. Possible small AVMs beyond the reach of the endoscope). Mr. Amos presented to the EMD today with complaints of fatigue, ARGUETA, recent fall. EMD evaluation revealed that the patient was afebrile and hemodynamically stable. CXR revealed moderate cardiomegaly with mild pulmonary vascular congestion. Laboratory testing revealed Hgb 6.7, Cr 2.41, iron saturation 3%, ferritin 11.6. Mr. Amos was diagnosed with a GI bleed exacerbated by anticoagulation for management of atrial fibrillation. He received Bumex 2 mg IV x 2 in the EMD and 1 unit packed red blood cells. Mr. Amos denies fever, flank discomfort, gross hematuria, foamy urine, difficulty voiding or uremic symptoms. He denies regular use of nonsteroidal medications or herbal supplements. He has had no recent exposure to any known nephrotoxic agents. Allergies Allergy/AdvReac Type Severity Reaction Status Date / Time No Known Allergies Allergy Verified 04/01/25 13:26 Home Medications Medication Instructions Recorded Confirmed Type atorvastatin 10 mg tablet 10 mg PO QAM 05/07/18 04/01/25 History pyridoxine (vitamin B6) 100 mg 100 mg PO QAM 05/07/18 04/01/25 History tablet (Vitamin B-6) tamsulosin 0.4 mg capsule (Flomax) 0.4 mg PO QAM 05/07/18 04/01/25 History qjnbblzl-hq-yxksf 300 mcg-K 60 1 tab PO DAILY 10/30/24 04/01/25 History mcg-lycop 600 mcg-lutein 300 mcg tablet (Centrum Silver Men) aspirin 81 mg tablet,delayed 81 mg PO DAILY #90 tabs 12/30/24 04/01/25 Rx release (Adult Low Dose Aspirin) metoprolol succinate 100 mg 200 mg PO QAM 12/30/24 04/01/25 History tablet,extended release 24 hr pen needle, diabetic 32 gauge x #100 ea 01/01/25 03/19/25 Rx 5/32" (Linn 2nd Gen Pen Needle) apixaban 5 mg tablet (Eliquis) 5 mg PO BID #60 tabs 01/05/25 04/01/25 Rx amlodipine 10 mg tablet 10 mg PO DAILY #90 tabs 01/07/25 04/01/25 Rx blood-glucose sensor (Dexcom G7 01/15/25 03/19/25 History Sensor device) blood-glucose,makeup editor,cont 01/15/25 03/19/25 History (Dexcom G7 Senior Specialist) ranolazine 500 mg tablet,extended 500 mg PO BID #180 tabs 01/27/25 04/01/25 Rx release,12 hr isosorbide mononitrate 30 mg 30 mg PO DAILY #90 tabs 02/10/25 04/01/25 Rx tablet,extended release 24 hr bumetanide 2 mg tablet 2 mg PO BID 02/16/25 04/01/25 History losartan 100 mg tablet 100 mg PO DAILY #90 tabs 02/16/25 04/01/25 Rx insulin glargine 100 unit/mL (3 45 unit subcut QPM 04/01/25 04/01/25 History mL) subcutaneous pen (Lantus Solostar U-100 Insulin) oxybutynin chloride 5 mg 5 mg PO DAILY 04/01/25 04/01/25 History tablet,extended release 24 hr Patient History Medical History CAD (coronary artery disease) Atrial fibrillation, permanent ZECHARIAH (obstructive sleep apnea) Bipap Lipoma of skin and subcutaneous tissue of neck Osteoarthritis Atrial fibrillation Surgical History Hx of total knee arthroplasty Hx of colonoscopy History of tonsillectomy History of nasal septoplasty Family History Mother Diabetes Father Diabetes Social History Smoking Status: Never smoker Tobacco Type: Smokeless Tobacco (Dip or Chew) Second Hand Exposure: No; Do You Dip or Chew Tobacco: No; Hx Alcohol Use: No Hx Substance Use: No Preferred Language: Turkmen Communication Ability: Effective Sql Server Dba Developer Required: No Beliefs That Will Affect Care: None Current Living Situation: Spouse Other Information That Helps Us Care for You: No Feels Safe at Home: Yes Safety Concerns: Feels Safe At This Time Assistive Devices: BiPap Review of Systems Constitutional: no fever Eyes: no problem reported Ear, Nose, Mouth, Throat: no problem reported Respiratory: + dyspnea on exertion; no cough Cardiovascular: no chest pain Gastrointestinal: no abdominal pain, no nausea, no vomiting and no diarrhea/loose stools Genitourinary: no dysuria, no urinary hesitancy or no hematuria Integumentary: no rash Neurologic: no localized weakness Physical Exam Constitutional: not in distress Eyes: PERRL, conjunctivae normal, anicteric sclerae ENMT: external ear and nose normal, oropharynx normal Neck: trachea midline, no thyromegaly Respiratory: normal respiratory effort, lungs clear to auscultation Cardiovascular: Rate/Rhythm: + irregularly irregular Gastrointestinal (Abdomen): normal bowel sounds, soft, nontender, no hepatosplenomegaly Musculoskeletal: Extremities: no cyanosis and no clubbing Skin: no rashes, warm and dry Neurologic: no focal motor deficits Results & Data Vital Signs (Past 12 Hours) Vital Signs Temp Pulse Pulse Pulse Resp BP BP 04/01/25 16:16 36.3 C L 63 20 124/72 04/01/25 15:46 36.5 C 68 22 128/69 04/01/25 15:31 36.4 C L 66 20 125/71 04/01/25 15:13 36.4 C L 60 150/74 H 04/01/25 14:24 36.3 C L 60 20 137/70 04/01/25 12:01 68 16 04/01/25 11:33 63 16 04/01/25 11:33 04/01/25 11:33 63 16 04/01/25 11:33 63 16 04/01/25 11:04 36.3 C L 64 18 127/66 BP Pulse Ox O2 Del Method 04/01/25 16:16 94 04/01/25 15:46 92 04/01/25 15:31 92 04/01/25 15:13 94 04/01/25 14:24 92 Room Air 04/01/25 12:01 152/71 H 94 Room Air 04/01/25 11:33 96 Room Air 04/01/25 11:33 96 Room Air 04/01/25 11:33 160/80 H 96 Room Air 04/01/25 11:33 160/80 H 96 Room Air 04/01/25 11:04 94 Room Air Laboratory Results Laboratory Results WBC 6.39 K/ul (4.8-10.8) 04/01/25 11:21 RBC 2.79 M/uL (4.70-6.10) L 04/01/25 11:21 Hgb 6.7 g/dl (14.0-18.0) L* 04/01/25 11:21 Hct 22.5 % (42.0-52.0) L 04/01/25 11:21 MCV 80.6 fL (80.0-100.0) 04/01/25 11:21 MCH 24.0 pg (25.0-34.0) L 04/01/25 11:21 MCHC 29.8 g/dL (32.0-36.0) L 04/01/25 11:21 RDW Std Deviation 50.2 fL (36.4-46.3) H 04/01/25 11:21 RDW Coeff of Steven 17.1 % (11.5-14.5) H 04/01/25 11:21 Plt Count 292 K/uL (130-400) 04/01/25 11:21 MPV 9.8 fL (9.4-12.4) 04/01/25 11:21 Immature Gran % (Auto) 0.5 % 04/01/25 11:21 Neut % (Auto) 68.8 % 04/01/25 11:21 Lymph % (Auto) 17.7 % 04/01/25 11:21 [place] % (Auto) 10.2 % 04/01/25 11:21 Eos % (Auto) 2.2 % 04/01/25 11:21 Baso % (Auto) 0.6 % 04/01/25 11:21 Neut # (Auto) 4.40 K/uL (1.40-6.50) 04/01/25 11:21 Lymph # (Auto) 1.13 K/uL (1.20-3.40) L 04/01/25 11:21 [place] # (Auto) 0.65 K/uL (0.11-0.59) H 04/01/25 11:21 Eos # (Auto) 0.14 K/uL (0.00-0.50) 04/01/25 11:21 Baso # (Auto) 0.04 K/uL (0.00-0.20) 04/01/25 11:21 Immature Gran # (Auto) 0.03 K/uL (0.01-0.20) 04/01/25 11:21 Polychromasia 1+ 04/01/25 11:21 Hypochromasia Present 04/01/25 11:21 PT 12.4 Seconds (9.0-12.0) H 04/01/25 11:21 INR 1.2 (0.9-1.1) H 04/01/25 11:21 APTT 28 Seconds (21-31) 04/01/25 11:21 PTT Ratio 1.0 04/01/25 11:21 Sodium 138 mmol/L (136-145) 04/01/25 11:21 Potassium 4.3 mmol/L (3.5-5.1) 04/01/25 11:21 Chloride 103 mmol/L (98-107) 04/01/25 11:21 Carbon Dioxide 27 mmol/L (21-32) 04/01/25 11:21 Anion Gap 8 (3-11) 04/01/25 11:21 BUN 51 mg/dl (6-23) H 04/01/25 11:21 Creatinine 2.41 mg/dl (0.6-1.4) H 04/01/25 11:21 Est Cr Clr Drug Dosing 36.2 ml/min 04/01/25 11:21 eGFR 27.31 04/01/25 11:21 BUN/Creatinine Ratio 21.2 (10-20) H 04/01/25 11:21 Glucose 277 mg/dl (70-99(Fasting)) H 04/01/25 11:21 POC Glucose 197 mg/dl (70-99) H 04/01/25 17:08 Calcium 8.6 mg/dl (8.6-10.3) 04/01/25 11:21 Iron 15 mcg/dl (35-175) L 04/01/25 11:21 TIBC 566 mcg/dl (250-450) H 04/01/25 11:21 Transferrin 404 mg/dl (200-360) H 04/01/25 11:21 Transferrin % Sat 3 % (20-50) L 04/01/25 11:21 Ferritin 11.6 ng/ml (8-388) 04/01/25 11:21 Total Bilirubin 0.7 mg/dl (0.2-1.0) 04/01/25 11:21 AST 17 U/L (13-39) 04/01/25 11:21 ALT 10 U/L (7-52) 04/01/25 11:21 Alkaline Phosphatase 77 U/L (34-104) 04/01/25 11:21 Troponin I High Sens 9.2 pg/ml (0-20) 04/01/25 11:21 B-Natriuretic Peptide 384 pg/ml (0-100) H 04/01/25 11:21 Total Protein 7.0 gm/dl (6.0-8.3) 04/01/25 11:21 Albumin 3.9 gm/dl (3.4-5.0) 04/01/25 11:21 Globulin 3.1 gm/dl (2.5-4.0) 04/01/25 11:21 Albumin/Globulin Ratio 1.3 (0.9-2) 04/01/25 11:21 Blood Type B Positive 04/01/25 12:50 Antibody Screen NEGATIVE 04/01/25 12:50 Crossmatch See Detail 04/01/25 12:50 Impressions Chest X-Ray 04/01/25 11:14 XR chest 1V portable CLINICAL HISTORY: Chest pain, nonspecific COMPARISON STUDY: 01/15/2025 FINDINGS: Stable moderate cardiomegaly with mild pulmonary vascular congestion. No consolidation or pleural effusion seen. No pneumothorax. IMPRESSION: Mild CHF. ACT 112: Negative or not required by law. Electronically signed by: Kee Kathleen M.D. 04/01/2025 11:46 AM PG Care Time/CCT Total # of Minutes Spent Total Time Spent with Patient: Total time spent is greater than 50% in coordination of care (as documented) at patient's floor/unit and/or counseling patient: Coding Level of Care Code 57378 IN/OBS CONSULT LVL 5,80M Diagnoses Acute kidney injury superimposed on CKD N17.9; N18.9 Symptomatic anemia D64.9 Primary hypertension I10 Hypertension type: primary hypertension Atrial fibrillation I48.91 CAD (coronary artery disease) I25.10 Type 2 diabetes mellitus with other circulatory complication, without long-term current use of insulin E11.59 Diabetes mellitus [facility] insulin use: without superintendent marine oil terminal use Diabetes mellitus complication status: with circulatory complication Diabetes mellitus complication detail: with other circulatory comp lications (3) Hypertension Hypertension type: primary hypertension Qualified Code(s): I10 - Essential (primary) hypertension (6) Type 2 diabetes mellitus Diabetes mellitus [facility] insulin use: without [facility] use Diabetes mellitus complication status: with circulatory complication Diabetes mellitus complication detail: with other circulatory complications Qualified Code(s): E11.59 - Type 2 diabetes mellitus with other circulatory complications
[2025-04-01] MEDS: INSULIN ASPART PER UNIT CHARGE SC SCH (17:45)
[2025-04-01] MEDS: BUMETANIDE 2 MG in SYRINGE 0 ML IV ONE ×2 (18:06→19:10)
[2025-04-01] MEDS: FERROUS SULFATE 325 MG TAB PO SCH (18:07)
[2025-04-01] MEDS ORDERED: Nursing to Pharmacy Communication SCH (19:45)
[2025-04-01 20:08] LABS: Hematocrit (blood only) 24.3 % (42.0-52.0); Hemoglobin 7.3 g/dl (14.0-18.0)
[2025-04-01] MEDS: PANTOprazole 40 MG/10 ML SYR x 1 IV ONE (20:33)
[2025-04-01] MEDS: LANTUS PER UNIT CHARGE SC SCH (20:33)
[2025-04-01] MEDS: RANOLAZINE 500 MG ER TAB PO SCH (20:34)
[2025-04-01] MEDS ORDERED: LANTUS PER UNIT CHARGE SC SCH (21:00)
--- NOTE | 2025-04-02 00:24 | Ultrasound Report ---
Exam(s): US RENAL EXAM: US Retroperitoneal Limited, Renal CLINICAL HISTORY: Reason for exam: JOSSIE. TECHNIQUE: Real-time limited ultrasound of the retroperitoneum with image documentation. Mild motion artifact. COMPARISON: No relevant prior studies available. FINDINGS: Right kidney: 11.5 cm in length. 2.2 x 2.5 x 2.5 cm cyst in the lower pole. Otherwise normal cortical thickness and echogenicity. No stones. No solid mass. No hydronephrosis. Left kidney: 10.9 cm in length. Normal cortical thickness and echogenicity. No stones. No solid mass. No hydronephrosis. Other: [id number]-[id number]-dekzhmqk right upper quadrant volume ascites. Limited evaluation of the perinephric space bilaterally, where crescentic hypoechoic areas are seen, that may be artifact, CT without contrast recommended to rule out perinephric fluid collections. IMPRESSION: 1. 2.5 cm right lower pole renal cyst. 2. Crescentic hypoechoic areas bilateral perinephric regions, nonspecific, may be artifact, consider CT abdomen and pelvis were further evaluation of possible perinephric fluid collections. 3. Otherwise, normal renal ultrasound. No hydronephrosis. Electronically signed by: Sharon Field M.D. 04/02/25 00:23 AM
[2025-04-02 06:33] LABS: Appearance Urine Clear (Clear); Bacteria Urine Automated None Seen (None Seen); Cast Urine Automated 0-2 /lpf (0-2); Epithelial Cell Urine Auto 0-2 /hpf (0-2); Glucose Urine UA Negative (Negative); RBC Urine Automated 0-2 /hpf (0-2); WBC Urine Automated 21-50 /hpf (0-5)
[2025-04-02 06:53] LABS: Protein Creatinine Ratio Urine 0.1 (0-0.2); Total Protein Urine Random 15.3 mg/dl (0-11.9)
[2025-04-02 07:34] LABS: Hematocrit (blood only) 22.8 % (42.0-52.0); Hemoglobin 7.1 g/dl (14.0-18.0); Mean Corpuscular Hemoglobin 25.2 pg (25.0-34.0); Mean Corpuscular Volume 80.9 fL (80.0-100.0); Platelet Count 257 K/uL (130-400); RDW Standard Deviation 49.4 fL (36.4-46.3); Red Blood Count 2.82 M/uL (4.70-6.10); White Blood Count 7.29 K/ul (4.8-10.8)
[2025-04-02 07:47] LABS: Anion Gap 7.0 (3-11); Blood Urea Nitrogen 46.0 mg/dl (6-23); Calcium 8.5 mg/dl (8.6-10.3); Carbon Dioxide 28.0 mmol/L (21-32); Chloride 104.0 mmol/L (98-107); Creatinine Clr Calc Pharmacy 38.9 ml/min; Glucose 104.0 mg/dl (70-99(Fasting)); Potassium 3.9 mmol/L (3.5-5.1); Sodium 139.0 mmol/L (136-145)
[2025-04-02 07:59] LABS: Hemoglobin A1C 7.6 % (4.5-5.6)
[2025-04-02] MEDS ORDERED: SODIUM CHLORIDE 0.9% 100 ML IV PRN (08:20)
--- NOTE | 2025-04-02 08:41 | XCELERA ---
[id number]
[2025-04-02] MEDS ORDERED: LOSARTAN POTASSIUM 50 MG TAB PO SCH (09:00)
[2025-04-02] MEDS ORDERED: METOPROLOL SUCC 50MG EXT REL TAB PO SCH (09:00)
--- NOTE | 2025-04-02 09:00 | Nephrology Progress Note ---
Date of Service April 02, 2025 Assessment & Plan (1) Acute kidney injury superimposed on CKD: Plan: * JOSSIE on CKD due to reduced effective arterial volume from GI blood loss in the setting of NACHO inhibitor therapy * 04/01/25 renal US - normal size kidneys, no hydro * NACHO/ARB held * Cr improved from 2.4 to 2.2 following 1st unit PRBC * Agree with blood transfusion. 2nd unit to be given this morning * Patient has been off apixaban for approximately 48 hours prior to admission * IV Bumex given in the EMD to avoid TACO. UO 300 cc since admission * Monitor I&O, daily BMP, H&H (2) Symptomatic anemia: (3) Hypertension: (4) Atrial fibrillation: (5) CAD (coronary artery disease): (6) Type 2 diabetes mellitus: Admission and Anticipated Discharge Date Admission Date: April 01, 2025 Subjective Mr. Amos was evaluated in his hospital room this morning. He denied abdominal pain, melena or hematochezia. staff radiologist was preparing to transfuse 2nd unit PRBC Review of Systems Constitutional: no fever Eyes: no problem reported Ear, Nose, Mouth, Throat: no problem reported Respiratory: + dyspnea on exertion; no cough Cardiovascular: no chest pain Gastrointestinal: no abdominal pain, no nausea, no vomiting and no diarrhea/loose stools Genitourinary: no dysuria, no urinary hesitancy or no hematuria Integumentary: no rash Neurologic: no localized weakness Physical Exam 2 Constitutional: not in distress Eyes: PERRL, conjunctivae normal, anicteric sclerae ENMT: external ear and nose normal, oropharynx normal Neck: trachea midline, no thyromegaly Respiratory: normal respiratory effort, lungs clear to auscultation Cardiovascular: Rate/Rhythm: + irregularly irregular Gastrointestinal (Abdomen): normal bowel sounds, soft, nontender, no h epatosplenomegaly Musculoskeletal: Extremities: no cyanosis and no clubbing Skin: no rashes, warm and dry Neurologic: no focal motor deficits Results & Data Vital Signs (Past 12 Hours) Vital Signs Temp Pulse Pulse Resp BP BP Pulse Ox 04/02/25 08:16 36.6 C 65 19 119/65 91 04/02/25 07:18 59 L 04/02/25 03:06 36.5 C 66 18 131/64 93 04/01/25 22:53 36.5 C 81 18 128/82 99 04/01/25 21:59 62 O2 Del Method 04/02/25 08:16 Room Air 04/02/25 07:18 04/02/25 03:06 BiPAP 04/01/25 22:53 BiPAP 04/01/25 21:59 Laboratory Results Laboratory Results - last 24 hr 04/01/25 04/01/25 04/01/25 11:21 12:50 17:08 WBC 6.39 RBC 2.79 L Hgb 6.7 L* Hct 22.5 L MCV 80.6 MCH 24.0 L MCHC 29.8 L RDW Std Deviation 50.2 H RDW Coeff of Steven 17.1 H Plt Count 292 MPV 9.8 Immature Gran % (Auto) 0.5 Neut % (Auto) 68.8 Lymph % (Auto) 17.7 [place] % (Auto) 10.2 Eos % (Auto) 2.2 Baso % (Auto) 0.6 Neut # (Auto) 4.40 Lymph # (Auto) 1.13 L [place] # (Auto) 0.65 H Eos # (Auto) 0.14 Baso # (Auto) 0.04 Immature Gran # (Auto) 0.03 Polychromasia 1+ Hypochromasia Present PT 12.4 H INR 1.2 H APTT 28 PTT Ratio 1.0 Sodium 138 Potassium 4.3 Chloride 103 Carbon Dioxide 27 Anion Gap 8 BUN 51 H Creatinine 2.41 H Est Cr Clr Drug Dosing 36.2 eGFR 27.31 BUN/Creatinine Ratio 21.2 H Glucose 277 H POC Glucose 197 H Estimat Average Glucose Hemoglobin A1c Calcium 8.6 Iron 15 L TIBC 566 H Transferrin 404 H Transferrin % Sat 3 L Ferritin 11.6 Total Bilirubin 0.7 AST 17 ALT 10 Alkaline Phosphatase 77 Troponin I High Sens 9.2 B-Natriuretic Peptide 384 H Total Protein 7.0 Albumin 3.9 Globulin 3.1 Albumin/Globulin Ratio 1.3 Urine Color Urine Appearance Urine pH Ur Specific [place] Urine Protein Urine Glucose (UA) Urine Ketones Urine Blood Urine Nitrite Urine Bilirubin Urine Urobilinogen Ur Leukocyte Esterase Urine WBC (Auto) Urine RBC (Auto) U Hyaline Cast (Auto) U Epithel Cells (Auto) Urine Bacteria (Auto) Ur Random Creatinine U Random Total Protein Protein/Creatinin Ratio Blood Type B Positive Antibody Screen NEGATIVE Crossmatch See Detail 04/01/25 04/01/25 04/02/25 19:38 20:23 07:06 WBC 7.29 RBC 2.82 L Hgb 7.3 L 7.1 L Hct 24.3 L 22.8 L MCV 80.9 MCH 25.2 MCHC 31.1 L RDW Std Deviation 49.4 H RDW Coeff of Steven 16.8 H Plt Count 257 MPV 9.6 Immature Gran % (Auto) Neut % (Auto) Lymph % (Auto) [place] % (Auto) Eos % (Auto) Baso % (Auto) Neut # (Auto) Lymph # (Auto) [place] # (Auto) Eos # (Auto) Baso # (Auto) Immature Gran # (Auto) Polychromasia Hypochromasia PT INR APTT PTT Ratio Sodium 139 Potassium 3.9 Chloride 104 Carbon Dioxide 28 Anion Gap 7 BUN 46 H Creatinine 2.23 H Est Cr Clr Drug Dosing 38.9 eGFR 29.98 BUN/Creatinine Ratio 20.6 H Glucose 104 H POC Glucose 131 H Estimat Average Glucose 171 Hemoglobin A1c 7.6 H Calcium 8.5 L Iron TIBC Transferrin Transferrin % Sat Ferritin Total Bilirubin AST ALT Alkaline Phosphatase Troponin I High Sens B-Natriuretic Peptide Total Protein Albumin Globulin Albumin/Globulin Ratio Urine Color Urine Appearance Urine pH Ur Specific [place] Urine Protein Urine Glucose (UA) Urine Ketones Urine Blood Urine Nitrite Urine Bilirubin Urine Urobilinogen Ur Leukocyte Esterase Urine WBC (Auto) Urine RBC (Auto) U Hyaline Cast (Auto) U Epithel Cells (Auto) Urine Bacteria (Auto) Ur Random Creatinine U Random Total Protein Protein/Creatinin Ratio Blood Type Antibody Screen Crossmatch 04/02/25 04/02/25 07:53 Unknown WBC RBC Hgb Hct MCV MCH MCHC RDW Std Deviation RDW Coeff of [place] Plt Count MPV Immature Gran % (Auto) Neut % (Auto) Lymph % (Auto) [place] % (Auto) Eos % (Auto) Baso % (Auto) Neut # (Auto) Lymph # (Auto) [place] # (Auto) Eos # (Auto) Baso # (Auto) Immature Gran # (Auto) Polychromasia Hypochromasia PT INR APTT PTT Ratio Sodium Potassium Chloride Carbon Dioxide Anion Gap BUN Creatinine Est Cr Clr Drug Dosing eGFR BUN/Creatinine Ratio Glucose POC Glucose 114 H Estimat Average Glucose Hemoglobin A1c Calcium Iron TIBC Transferrin Transferrin % Sat Ferritin Total Bilirubin AST ALT Alkaline Phosphatase Troponin I High Sens B-Natriuretic Peptide Total Protein Albumin Globulin Albumin/Globulin Ratio Urine Color Yellow Urine Appearance Clear Urine pH 5.5 Ur Specific [place] 1.015 Urine Protein Trace H Urine Glucose (UA) Negative Urine Ketones Negative Urine Blood Negative Urine Nitrite Negative Urine Bilirubin Negative Urine Urobilinogen Negative Ur Leukocyte Esterase Trace H Urine WBC (Auto) 21-50 H Urine RBC (Auto) 0-2 U Hyaline Cast (Auto) 0-2 U Epithel Cells (Auto) 0-2 Urine Bacteria (Auto) None Seen Ur Random Creatinine 112.1 U Random Total Protein 15.3 H Protein/Creatinin Ratio 0.1 Blood Type Antibody Screen Crossmatch PG Care Time/CCT Total # of Minutes Spent Total Time Spent with Patient: Total time spent is greater than 50% in coordination of care (as documented) at patient's floor/unit and/or counseling patient: Coding Level of Care Code 78510 SUB INP/OBS CARE 3/50MIN Diagnoses Acute kidney injury superimposed on CKD N17.9; N18.9 Symptomatic anemia D64.9 Primary hypertension I10 Hypertension type: primary hypertension Atrial fibrillation I48.91 CAD (coronary artery disease) I25.10 Type 2 diabetes mellitus with other circulatory complication, without long-term current use of insulin E11.59 Diabetes mellitus complication detail: with other circulatory complications Diabetes mellitus complication status: with circulatory complication Diabetes mellitus termite technician insulin use: without termite technician use (3) Hypertension Hypertension type: primary hypertension Qualified Code(s): I10 - Essential (primary) hypertension (6) Type 2 diabetes mellitus Diabetes mellitus complication detail: with other circulatory complications Diabetes mellitus complication status: with circulatory complication Diabetes mellitus shelter insulin use: without termite technician use Qualified Code(s): E11.59 - Type 2 diabetes mellitus with other circulatory complications
[2025-04-02] MEDS: OXYBUTYNIN CHLORIDE XL 5 MG TABCR PO SCH (09:31)
[2025-04-02] MEDS: ATORVASTATIN 10 MG TAB PO SCH (09:31)
[2025-04-02] MEDS: ISOSORBIDE MONO EXTENDED REL 30 MG TABCR PO SCH (09:31)
[2025-04-02] MEDS: TAMSULOSIN HCL 0.4 MG CAP PO SCH (09:32)
[2025-04-02] MEDS: BUMETANIDE 2 MG in SYRINGE 0 ML IV SCH (09:32)
--- NOTE | 2025-04-02 10:52 | Hospitalist Progress Note ---
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 (2) Acute on chronic heart failure with preserved ejection fraction (HFpEF): Plan: -CXR showing mild CHF -bumex 2mg IV BID -echo -cardiology consulted (3) Acute kidney injury superimposed on CKD: Plan: -cr 2.41 bumex recently increased -will con't bumex for now -nephrology consult appreciated -hold losartan (4) Type 2 diabetes mellitus: Plan: -lantus -pharm consult for glycemic management (5) Hypertension: Plan: -isosorbide -metoprolol (6) Hypercholesterolemia: Plan: -atorvastatin (7) Atrial fibrillation, permanent: Plan: -eliquis on hold 2nd to anemia -pt to consider watchman procedure to prevent futher bleeding on anticoagulation Admission and Anticipated Discharge Date Admission Date: April 01, 2025 Subjective No events events overnight. Review of Systems Review of Systems: CONST: Positive fatigue, Negative for fever, body aches and chills. HENT: Negative for neck pain/stiffness, headache, congestion, sore throat, swelling. EYES: Negative for discharge/pain or vision changes. RESP: Negative for cough/hemoptysis and Positive shortness of breath. CV: Negative chest pain, difficulty breathing, palpitations. ABD: Negative pain, nausea, vomiting. : Negative increase frequency, dysuria, blood in urine or stool. MUSC: Negative for muscle aches, edema. SKIN: Negative rash, lesions/sores. NEURO: Negative headache, dizziness, weakness. Physical Exam Physical Exam: GENERAL APPEARANCE NAD, activity normal for age, well developed/ well nourished, no cyanosis, pallor, or diaphoresis. EYES lids/conjunctiva normal. EARS/NOSE/THROAT Mucous membranes moist, nares normal, lips/teeth normal uvula midline without oral pharyngeal erythema, exudate or swelling TMs normal bilaterally. No lymphangitis/lymphedema. HEAD/NECK normocephalic atraumatic, no facial trauma, neck is supple. RESPIRATORY respiratory effort normal, speaks in full sentences, no tripod position, no accessory muscle use. Lungs clear to auscultation without rhonchi, wheezes, rales CARDIAC Regular rate and rhythm, no edema. ABDOMINAL Soft, ND/NT. No evidence of fluid wave. No pulsatile masses on exam, rebound tenderness, Crawley sign or pain over Mcburney's point. MUSCLES/EXTREMITIES No abnormal range of motion, 2+ edema b/l lower ext SKIN Warm, pink and dry. No rashes, dermatoses, petechiae or lesions. NEUROLOGICAL Speech is clear and appropriate. Normal level of consciousness. Gait and coordination are normal. 5/5 strength in all extremities. PSYCH Normal mood and affect. Judgement/competence is appropriate Results & Data Results & Data Vital Signs (Past 12 Hours) Vital Signs Temp Pulse Pulse Resp BP BP BP 04/02/25 10:40 36.7 C 69 20 119/65 04/02/25 08:16 36.6 C 65 19 119/65 04/02/25 07:18 59 L 04/02/25 03:06 36.5 C 66 18 131/64 04/01/25 22:53 36.5 C 81 18 128/82 Pulse Ox O2 Del Method 04/02/25 10:40 92 04/02/25 08:16 91 Room Air 04/02/25 07:18 04/02/25 03:06 93 BiPAP 04/01/25 22:53 99 BiPAP PG Care Time/CCT Total # of Minutes Spent Total Time Spent with Patient: Total time spent is greater than 50% in coordination of care (as documented) at patient's floor/unit and/or counseling patient: Coding Level of Care Code 61111 SUB INP/OBS CARE 2/35MIN Diagnoses Symptomatic anemia D64.9 Acute on chronic heart failure with preserved ejection fraction (HFpEF) I50.33 Acute kidney injury superimposed on CKD N17.9; N18.9 Type 2 diabetes mellitus with other circulatory complication, without long-term current use of insulin E11.59 Diabetes mellitus termite exterminator insulin use: without group home use Diabetes mellitus complication status: with circulatory complication Diabetes mellitus complication detail: with other circulatory complications Primary hypertension I10 Hypertension type: primary hypertension Hypercholesterolemia E78.00 Atrial fibrillation, permanent I48.21 (4) Type 2 diabetes mellitus Diabetes mellitus group home insulin use: without termite exterminator use Diabetes mellitus complication status: with circulatory complication Diabetes mellitus complication detail: with other circulatory complications Qualified Code(s): E11.59 - Type 2 diabetes mellitus with other circulatory complications (5) Hypertension Hypertension type: primary hypertension Qualified Code(s): I10 - Essential (primary) hypertension
--- NOTE | 2025-04-02 10:57 | Pharmacy Report ---
Pharmacy Glycemic Short Note 2 - Date of Service April 02, 2025 - Glycemic Short BSG Results (Last 24 hours): 04/01/25 04/01/25 04/01/25 11:21 17:08 20:23 Glucose 277 H POC Glucose 197 H 131 H 04/02/25 04/02/25 07:06 07:53 Glucose 104 H POC Glucose 114 H OUTPATIENT ANTIDIABETIC REGIMEN: * Lantus 45 units SC HS HbA1c: 7.7% (12/21/24, reordered for 04/02/25 ASSESSMENT: 04/02 * Patient received total of 18 units of insulin yesterday, of which 10 units were basal insulin. * Fasting BSG 104 mg/dL - reasonable to continue with basal scale at HS * Continue same CF/CR for now 04/01 * SS is a 75 year old male who presented to ED with increased fatigue and shortness of breath on exertion over past several months and fall last evening * Patient on basal insulin only as an outpatient - will plan to transition to 50/50 SC basal/bolus while inpatient * Blood sugar on presentation is 277 mg/dL, last dose of Lantus reported as last evening (45 units) * DM 2 diet ordered PLAN FOR INPATIENT GLYCEMIC CONTROL: * Basal insulin * Lantus 10-15-20 units SQ HS * Bolus insulin * NovoLog per scale ACHS or Q6hrs while NPO * Goal Range: Low 120 mg/dL - High 160 mg/dL * Correction Factor: 25 mg/dL/unit * Nutritional / Prandial insulin per carb ratio of 1 unit per 8 grams CHO consumed
--- NOTE | 2025-04-02 13:40 | Gastrointestinal Consultation ---
Date of Consultation April 02, 2025 Assessment & Plan (1) Anemia: H/H now 7.1/22.8 after 1 unit of PRBCs. Patient receiving a 2nd unit of PRBCs during my visit. Patient was heme negative in the ED. Colonoscopy and EGD this year without findings to explain anemia. Patient on Eliquis. To complete a GI work-up, patient should be arranged for a video capsule endoscopy. OK to continue PPI and continue to monitor H/H. Supervising Physician Co-Signing Physician Notes Reviewed with Lita Adler. Negative EGD: For anemia. Outpatient video capsule endoscopy. Patient was discharged prior to being seen by me. History of Present Illness Reason for Consultation: Anemia Attending Physician: Jem Holguin MD History of Present Illness Patient is a 75 yo male with PMH of HTN, Afib on Eliquis, CAD, DM2, & CHF who presents with fatigue, SOB and lightheadedness. He denies melena, hematemesis, hematochezia, or coffee ground emesis. He is not experiencing abdominal pain. He notes constipation since beginning iron supplementation (which he notes was recently stopped). He notes he quit taking his anticoagulation on Saturday because he ran out. He noticed progressive swelling of his BLLE and had outpatient adustments made to his Bumex. When he became progressively more short of breath he came to the ED. His Hgb was 6.7. Cr was 2.41. CXR was consistent with CHF exacerbation. He was given 1 unit PRBCs and then given a dose of Bumex after. His stool was heme negative in the ED. He was subsequently admitted to the hospital. GI has been asked to evaluate patient due to his anemia. Leena ney a colonoscopy with [facility] in September 2024 which he notes was unremarkable. He then was admitted in December 2024 where he had an EGD that did not identify any source of anemia/GI bleeding. It was felt the source may be further in the small bowel and the recommendation was to pursue a video capsule if worsening. Allergies Allergy/AdvReac Type Severity Reaction Status Date / Time No Known Allergies Allergy Verified 04/01/25 13:26 Home Medications Medication Instructions Recorded Confirmed Type atorvastatin 10 mg tablet 10 mg PO QAM 05/07/18 04/01/25 History pyridoxine (vitamin B6) 100 mg 100 mg PO QAM 05/07/18 04/01/25 History tablet (Vitamin B-6) tamsulosin 0.4 mg capsule (Flomax) 0.4 mg PO QAM 05/07/18 04/01/25 History [id number] 300 mcg-K 60 1 tab PO DAILY 10/30/24 04/01/25 History mcg-lycop 600 mcg-lutein 300 mcg tablet (Centrum Silver Men) aspirin 81 mg tablet,delayed 81 mg PO DAILY #90 tabs 12/30/24 04/01/25 Rx release (Adult Low Dose Aspirin) metoprolol succinate 100 mg 200 mg PO QAM 12/30/24 04/01/25 History tablet,extended release 24 hr pen needle, diabetic 32 gauge x #100 ea 01/01/25 03/19/25 Rx 5/32" ([place]inn 2nd Gen Pen Needle) amlodipine 10 mg tablet 10 mg PO DAILY #90 tabs 01/07/25 04/01/25 Rx blood-glucose sensor (Dexcom G7 01/15/25 03/19/25 History Sensor device) blood-glucose,bottom presser,cont 01/15/25 03/19/25 History (Dexcom G7 Camera Machinist) ranolazine 500 mg tablet,extended 500 mg PO BID #180 tabs 01/27/25 04/01/25 Rx release,12 hr isosorbide mononitrate 30 mg 30 mg PO DAILY #90 tabs 02/10/25 04/01/25 Rx tablet,extended release 24 hr bumetanide 2 mg tablet 2 mg PO BID 02/16/25 04/01/25 History insulin glargine 100 unit/mL (3 45 unit subcut QPM 04/01/25 04/01/25 History mL) subcutaneous pen (Lantus Solostar U-100 Insulin) oxybutynin chloride 5 mg 5 mg PO DAILY 04/01/25 04/01/25 History tablet,extended release 24 hr Patient History Medical History CAD (coronary artery disease) Atrial fibrillation, permanent ZECHARIAH (obstructive sleep apnea) Bipap Lipoma of skin and subcutaneous tissue of neck Osteoarthritis Atrial fibrillation Surgical History Hx of total knee arthroplasty Hx of colonoscopy History of tonsillectomy History of nasal septoplasty Family History Mother Diabetes Father Diabetes Social History Smoking Status: Never smoker Tobacco Type: Smokeless Tobacco (Dip or Chew) Second Hand Exposure: No; Do You Dip or Chew Tobacco: No; Hx Alcohol Use: No Hx Substance Use: No Preferred Language: Moroccan Communication Ability: Effective Fashion Model Required: No Beliefs That Will Affect Care: None Current Living Situation: Spouse Feels Safe at Home: Yes Assistive Devices: BiPap and Walker Review of Systems Constitutional: no fever and no chills Respiratory: no cough and no dyspnea Gastrointestinal: no abdominal pain Physical Exam Constitutional: well developed Respiratory: no respiratory distress Cardiovascular: Rate/Rhythm: regular rate Gastrointestinal (Abdomen): Inspection/Auscultation: abdomen normal to inspec tion Psychiatric: Orientation: alert and oriented x 3 Results & Data Vital Signs (Past 12 Hours) Vital Signs Temp Pulse Pulse Resp BP BP BP 04/02/25 12:43 36.7 C 73 20 127/69 04/02/25 11:41 36.8 C 68 20 119/67 04/02/25 11:13 36.7 C 62 20 116/57 L 04/02/25 10:58 36.8 C 65 20 104/62 04/02/25 10:40 36.7 C 69 20 119/65 04/02/25 08:16 36.6 C 65 19 119/65 04/02/25 07:18 59 L 04/02/25 03:06 36.5 C 66 18 131/64 Pulse Ox O2 Del Method 04/02/25 12:43 93 04/02/25 11:41 92 04/02/25 11:13 92 04/02/25 10:58 92 04/02/25 10:40 92 04/02/25 08:16 91 Room Air 04/02/25 07:18 04/02/25 03:06 93 BiPAP PG Care Time/CCT Total # of Minutes Spent Total Time Spent with Patient: Total time spent is greater than 50% in coordination of care (as documented) at patient's floor/unit and/or counseling patient: Coding Level of Care Code 32342 INT INP/OBS CARE 1/40MIN Diagnoses Anemia D64.9
--- NOTE | 2025-04-02 15:26 | Cardiology Consultation ---
Date of Consultation April 02, 2025 Assessment & Plan (1) Acute blood loss anemia: -- ? Small bowel AVMs 2. Acute heart failure preserved ejection fraction 3. Stable CAD95% mid LAD, medical management 4. Permanent AF 5. Stable CKD 6. Mild to moderate MR, moderate pulm hypertension 7. Type 2 diabetes Acute heart failure likely precipitated by anemia/blood loss Weight up 20 pounds with persistent congestion on exam/chest x-ray Needs additional diuresis, currently on Bumex 2 mg IV twice daily. If no significant response would increase to 4 mg or trial of metolazone Has ecurrent bleeding despite reduction in antithrombotic therapy without clear treatable GI source> will arrange for watchman as an outpatient Continue to hold anticoagulation while awaiting Watchman Low-dose aspirin can be restarted if blood counts stable For now continue current antianginal therapy for stable CAD. Continue amlodipine, Ranexa, Imdur. Losartan on hold. Resume if kidney function remains stable. Would avoid clonidine. Long-term recommend revascularization of LAD but complicated by need for additional antiplatelet therapy. Outpatient consideration if blood counts remain stable Patient really hoping to leave hospital tomorrow for his anniversary. Ideally would prefer inpatient diuresis. However, if blood count stable previously was able to lose 30 pounds with outpatient diuresis and close CHF follow-up. Could try again. History of Present Illness Attending Physician: Jem Holguin MD History of Present Illness Mr. Amos is a 75-year-old male with a history of permanent atrial fibrillation, hypertension, dyslipidemia, type 2 diabetes and CAD. Seen today after hospitalized with CHF exacerbation and recurrent blood loss anemia. He has a known 95% mid LAD stenosis that was previously refractory to angioplasty, currently being medically managed. Previously admitted 12/2024 with GI bleed with hemoglobin down to 7.8 requiring transfusion. EGD unremarkable. At that time was on triple therapy with Xarelto. More recently has been on Eliquis, aspirin. Over the summer followed by CHF clinic. Lost 30 pounds on Bumex 2 mg twice daily. Has been on Bumex 2 mg daily maintenance Last seen by cardiology 2 weeks ago. At that time increased dyspnea/edema and weight up 20 pounds. Minimal response to change to twice daily diuretics. Persistent dyspnea with minimal symptoms and referred to ED where hemoglobin noted to be down to 6.7. HS TropI normal. BNP slightly up from prior, 384 chest x-ray with edema. Now post 2u PRBCs. LVEF unchanged on echo. Reports no dyspnea at rest, not requiring oxygen. Short of breath with any exertion still. Has been seen by GI, capsule endoscopy suggested. Has received IV Bumex x 2 thus far urine output only 300. SCr stable 2.2. Allergies Allergy/AdvReac Type Severity Reaction Status Date / Time No Known Allergies Allergy Verified 04/01/25 13:26 Home Medications Medication Instructions Recorded Confirmed Type atorvastatin 10 mg tablet 10 mg PO QAM 05/07/18 04/01/25 History pyridoxine (vitamin B6) 100 mg 100 mg PO QAM 05/07/18 04/01/25 History tablet (Vitamin B-6) tamsulosin 0.4 mg capsule (Flomax) 0.4 mg PO QAM 05/07/18 04/01/25 History [id number] 300 mcg-K 60 1 tab PO DAILY 10/30/24 04/01/25 History mcg-lycop 600 mcg-lutein 300 mcg tablet (Centrum Silver Men) aspirin 81 mg tablet,delayed 81 mg PO DAILY #90 tabs 12/30/24 04/01/25 Rx release (Adult Low Dose Aspirin) metoprolol succinate 100 mg 200 mg PO QAM 12/30/24 04/01/25 History tablet,extended release 24 hr pen needle, diabetic 32 gauge x #100 ea 01/01/25 03/19/25 Rx 5/32" (Linn 2nd Gen Pen Needle) apixaban 5 mg tablet (Eliquis) 5 mg PO BID #60 tabs 01/05/25 04/01/25 Rx amlodipine 10 mg tablet 10 mg PO DAILY #90 tabs 01/07/25 04/01/25 Rx blood-glucose sensor (Dexcom G7 01/15/25 03/19/25 History Sensor device) blood-glucose,process machine operator,cont 01/15/25 03/19/25 History (Dexcom G7 Web Site Designer) ranolazine 500 mg tablet,extended 500 mg PO BID #180 tabs 01/27/25 04/01/25 Rx release,12 hr isosorbide mononitrate 30 mg 30 mg PO DAILY #90 tabs 02/10/25 04/01/25 Rx tablet,extended release 24 hr bumetanide 2 mg tablet 2 mg PO BID 02/16/25 04/01/25 History losartan 100 mg tablet 100 mg PO DAILY #90 tabs 02/16/25 04/01/25 Rx insulin glargine 100 unit/mL (3 45 unit subcut QPM 04/01/25 04/01/25 History mL) subcutaneous pen (Lantus Solostar U-100 Insulin) oxybutynin chloride 5 mg 5 mg PO DAILY 04/01/25 04/01/25 History tablet,extended release 24 hr Patient History Medical History CAD (coronary artery disease) Atrial fibrillation, permanent ZECHARIAH (obstructive sleep apnea) Bipap Lipoma of skin and subcutaneous tissue of neck Osteoarthritis Atrial fibrillation Surgical History Hx of total knee arthroplasty Hx of colonoscopy History of tonsillectomy History of nasal septoplasty Family History Mother Diabetes Father Diabetes Social History Smoking Status: Never smoker Tobacco Type: Smokeless Tobacco (Dip or Chew) Second Hand Exposure: No; Do You Dip or Chew Tobacco: No; Hx Alcohol Use: No Hx Substance Use: No Preferred Language: Luxembourgish Communication Ability: Effective Photocomposing Machine Operator Required: No Beliefs That Will Affect Care: None Current Living Situation: Spouse Other Information That Helps Us Care for You: No Feels Safe at Home: Yes Safety Concerns: Feels Safe At This Time Assistive Devices: BiPap and Walker Review of Systems Review of Systems: All systems reviewed & are unremarkable except as noted in HPI & below Physical Exam Physical Exam: General: Comfortable, off oxygen HEENT: Sclerae anicteric Lungs: Crackles at bases Cardiac: Irregular irregular, 2 out of 6 holosystolic murmur at apex Vascular: 2+ radial Abdomen: Soft, nontender Extremities: Well perfused, trace to 1+ edema bilaterally Neuro: Nonfocal Psych: Alert orient x3, normal affect and mood Results & Data Vital Signs (Past 12 Hours) Vital Signs Temp Pulse Pulse Resp BP BP BP 04/02/25 13:56 63 04/02/25 13:48 97.9 F 71 20 110/67 04/02/25 12:43 98.1 F 73 20 127/69 04/02/25 11:41 98.2 F 68 20 119/67 04/02/25 11:13 98.1 F 62 20 116/57 L 04/02/25 10:58 98.2 F 65 20 104/62 04/02/25 10:40 98.1 F 69 20 119/65 04/02/25 08:16 97.9 F 65 19 119/65 04/02/25 07:18 59 L 04/02/25 03:06 97.7 F 66 18 131/64 Pulse Ox O2 Del Method 04/02/25 13:56 04/02/25 13:48 91 04/02/25 12:43 93 04/02/25 11:41 92 04/02/25 11:13 92 04/02/25 10:58 92 04/02/25 10:40 92 04/02/25 08:16 91 Room Air 04/02/25 07:18 04/02/25 03:06 93 BiPAP PG Care Time/CCT Total # of Minutes Spent Total Time Spent with Patient: Total time spent is greater than 50% in coordination of care (as documented) at patient's floor/unit and/or counseling patient: Coding Level of Care Code 79630 INT INP/OBS CARE 3/75MIN Diagnoses Acute blood loss anemia D62
[2025-04-02 16:21] LABS: Hematocrit (blood only) 26.1 % (42.0-52.0); Hemoglobin 8.0 g/dl (14.0-18.0)
[2025-04-03 03:34] VITALS: RESP 18
[2025-04-03 06:37] LABS: Hematocrit (blood only) 25.5 % (42.0-52.0); Hemoglobin 7.9 g/dl (14.0-18.0); Mean Corpuscular Hemoglobin 25.0 pg (25.0-34.0); Mean Corpuscular Volume 80.7 fL (80.0-100.0); Platelet Count 262 K/uL (130-400); RDW Standard Deviation 49.8 fL (36.4-46.3); Red Blood Count 3.16 M/uL (4.70-6.10); White Blood Count 8.05 K/ul (4.8-10.8)
--- NOTE | 2025-04-03 06:45 | Electrocardiogram Report ---
Test Reason : Blood Pressure : */* mmHG Vent. Rate : 57 BPM Atrial Rate : * BPM P-R Int : * ms QRS Dur : 92 ms QT Int : 442 ms P-R-T Axes : * 62 207 degrees QTcB Int : 430 ms Atrial fibrillation with slow ventricular response Low voltage QRS Nonspecific ST and T wave abnormality Abnormal ECG When compared with ECG of 15-Jan-2025 09:15, (unconfirmed) Nonspecific T wave abnormality now evident in Lateral leads Confirmed by Anthony Yuen ([id number]) on 04/03/2025 6:44:52 AM Referred By: Arabella Hand Confirmed By: Anthony Yuen
[2025-04-03 07:27] LABS: Anion Gap 8.0 (3-11); Blood Urea Nitrogen 45.0 mg/dl (6-23); Calcium 8.4 mg/dl (8.6-10.3); Carbon Dioxide 28.0 mmol/L (21-32); Chloride 104.0 mmol/L (98-107); Creatinine Clr Calc Pharmacy 40.6 ml/min; Glucose 119.0 mg/dl (70-99(Fasting)); Potassium 3.7 mmol/L (3.5-5.1); Sodium 140.0 mmol/L (136-145)
[2025-04-03 08:21] VITALS: TEMP 97.5; O2SAT 95
--- NOTE | 2025-04-03 09:24 | Discharge Summary ---
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 Pt's heme increased to 8.0 after 2 units PRBC GI recommending out patient capsule endoscopy Cardiology recommending d/c eliquis and Watchman procedure (2) Acute on chronic heart failure with preserved ejection fraction (HFpEF): -CXR showing mild CHF -bumex 2mg IV BID -echo -cardiology consulted -con't diuresis, pt would like to be discharged home today for his 51 anniversary -con't to diuris with Bumex at home (3) Acute kidney injury superimposed on CKD: -cr 2.21 bumex recently increased -will con't bumex for now -nephrology consult appreciated -hold losartan (4) Type 2 diabetes mellitus: -lantus -pharm consult for glycemic management (5) Hypertension: -isosorbide -metoprolol (6) Hypercholesterolemia: -atorvastatin (7) Atrial fibrillation, permanent: -eliquis on hold 2nd to anemia -pt to consider watchman procedure to prevent futher bleeding on anticoagulation Admission HPI Per Admitting Provider Pt is a 75 y/o male with pmh of HTN, atrial fib on eliquis, CAD, DM, recent GI bleed, who presents with several months of fatigue, SOB, and lightheadedness.Pt denies any dark stools or bleeding. Pt states he ran out of his Vital Metrixis on Saturday and has not been taking it since. He does also follow up with cardiology and nephrology and recently had his Bumex increased due to lower ext swelling. In the ER he labs showed heme 6.7, with cr of 2.41, slighly elevated from his last 2.01. His CXR showed mild CHF. He was transfused 1 unit PRBC in the ER and given a dose of bumex. Pt will be admitted for further work up of his symptomatic anemia, acute on chronic KD, and CHF exacerbation. Discharge Exam GENERAL APPEARANCE NAD, activity normal for age, well developed/ well nourished, no cyanosis, pallor, or diaphoresis. EYES lids/conjunctiva normal. EARS/NOSE/THROAT Mucous membranes moist, nares normal, lips/teeth normal uvula midline without oral pharyngeal erythema, exudate or swelling TMs normal bilaterally. No lymphangitis/lymphedema. HEAD/NECK normocephalic atraumatic, no facial trauma, neck is supple. RESPIRATORY respiratory effort normal, speaks in full sentences, no tripod position, no accessory muscle use. Lungs clear to auscultation without rhonchi, wheezes, rales CARDIAC Regular rate and rhythm, no edema. ABDOMINAL Soft, ND/NT. No evidence of fluid wave. No pulsatile masses on exam, rebound tenderness, Crawley sign or pain over Mcburney's point. MUSCLES/EXTREMITIES No abnormal range of motion, 2+ edema b/l lower ext SKIN Warm, pink and dry. No rashes, dermatoses, petechiae or lesions. NEUROLOGICAL Speech is clear and appropriate. Normal level of consciousness. Gait and coordination are normal. 5/5 strength in all extremities. PSYCH Normal mood and affect. Judgement/competence is appropriate Discharge Plan Discharge Items Patient Disposition: Home - Self-Care Reason For Visit: SYMPOTOMATIC ANEMIA, CHF Discharge Diagnosis: Anemia, ChF Condition on Discharge: Fair Activity: Resume your previous activity Non-emergency contact: Primary Care Provider Call non-emergency contact if: you have any medication questions Follow-up/Referrals: Feroz Moore PA-C [Primary Care Provider] - Diet: Regular Addtl Attending Provider Instructions: Follow up with cardiology for Watchman procedure, Follow up with GI for capsule endoscopy Pending Studies at Discharge: No Stand-Alone Forms: [email or web address], Smoking Cessation Medications and DC Order Prescriptions: Continued aspirin [Adult Low Dose Aspirin] 81 mg tablet,delayed release (DR/EC) 81 mg PO DAILY Qty: 90 3RF amlodipine 10 mg tablet 10 mg PO DAILY Qty: 90 3RF ranolazine 500 mg tablet extended release 12 hr 500 mg PO BID Qty: 180 3RF isosorbide mononitrate 30 mg tablet extended release 24 hr 30 mg PO DAILY Qty: 90 3RF Centrum Silver Men [phone] mcg tablet 1 tab PO DAILY bumetanide 2 mg tablet 2 mg PO BID Rx Instructions: May increase to 4 mg BID as needed for weight gain, swelling, SOB losartan 100 mg tablet 100 mg PO DAILY Qty: 90 3RF (DME) Dexcom G7 Sensor Device See Rx Instructions .Route Rx Instructions: As directed (DME) Dexcom G7 Solar Installation Supervisor Misc See Rx Instructions .Route Rx Instructions: As directed (DME) pen needle, diabetic [Linn 2nd Gen Pen Needle] 32 gauge x 5/32" needle See Rx Instructions .Route Qty: 100 5RF Rx Instructions: use new needle with each injection 1xdaily atorvastatin 10 mg Tablet 10 mg PO QAM tamsulosin [Flomax] 0.4 mg Capsule 0.4 mg PO QAM pyridoxine (vitamin B6) [Vitamin B-6] 100 mg Tablet 100 mg PO QAM metoprolol succinate 100 mg tablet extended release 24 hr 200 mg PO QAM insulin glargine [Lantus Solostar U-100 Insulin] 100 unit/mL (3 mL) insulin pen 45 unit SUBCUT QPM oxybutynin chloride 5 mg tablet extended release 24hr 5 mg PO DAILY Discontinued Eliquis 5 mg tablet 5 mg PO BID Qty: 60 11RF Patient Comments: Pt hasn't taken in 2 days due to be out of refills. Discharge Orders: Discharge Order (Routine); Ordered 04/03/25 Ordered By: Jem Chavez/Other Patient Handouts: High Blood Sugar (Hyperglycemia), Managing Type 2 Diabetes Admission Data Admit Date/Time: 04/01/25 13:19 Attending Provider: Jem Holguin Admit Provider: Jem Holguin Primary Care Provider: Feroz Moore. Other Providers: Jem Holguin; Anthony Yuen; Juan Jose Flor; William De La Torre Hospital Stay Data Consultations 04/01/25 13:39 ED Decision to Admit Stat 04/01/25 14:20 Consult Cardiology Routine Consult Nephrology Routine 04/02/25 08:19 Consult Gastroenterology Routine Diagnostic Imagining Performed 04/01/25 17:10 US Kidney Bladder [US renal/blad retro comp] Routine Pending Results Patient Have Any Pending Studies at Discharge: No Discharge Instructions Given to Patient (Per Discharging Provider) Follow up with cardiology for Watchman procedure, Follow up with GI for capsule endoscopy Total Time Total Time Spent Total Time Spent (In Minutes): 50 Coding Level of Care Code 93061 INP/OBS DISCH >30 MIN Diagnoses Symptomatic anemia D64.9 Acute on chronic heart failure with preserved ejection fraction (HFpEF) I50.33 Acute kidney injury superimposed on CKD N17.9; N18.9 Type 2 diabetes mellitus with other circulatory complication, without long-term current use of insulin E11.59 Diabetes mellitus buttermaker helper insulin use: without buttermaker helper use Diabetes mellitus complication status: with circulatory complication Diabetes mellitus complication detail: with other circulatory complications Primary hypertension I10 Hypertension type: primary hypertension Hypercholesterolemia E78.00 Atrial fibrillation, permanent I48.21
--- NOTE | 2025-04-03 11:00 | Nephrology Progress Note ---
Date of Service April 03, 2025 Assessment & Plan (1) Acute kidney injury superimposed on CKD: (2) Symptomatic anemia: (3) Fluid overload: (4) Hypertension: Plan 75-year-old male admitted to the hospital with fatigue, dyspnea on exertion and recent fall. Chest x-ray showed pulmonary vascular congestion, he was started on Bumex 2 mg IV twice a day, at home he was taking 2 mg orally twice a day. He was found to have profound anemia, hemoglobin was 6.7 requiring blood de león sfusion. Kidney function improved, creatinine down to 2.1 this morning, overall he feels well. --Okay to resume home dose of diuretics on discharge. --Advised to have lab done early next week and follow-up closely with heart failure clinic for further diuretic management. Admission and Anticipated Discharge Date Admission Date: April 01, 2025 Handy Ingram was seen and evaluated this morning. He reports overall feeling much better. Kidney function started to improve, creatinine was down to 2.1. Volume status improved and overall he feels his respiratory status improved close to his baseline. Review of Systems Review of Systems: All systems reviewed & are unremarkable except as noted in Subjective Physical Exam Constitutional: WD/WN, vitals as above no acute distress Eyes: + anicteric sclerae Neck: normal visual inspection Respiratory: Auscultation: lungs clear to auscultation bilaterally Cardiovascular: Rate/Rhythm: regular rate and regular rhythm Extremities: + edema (trace) Skin: no rashes Neurologic: no focal motor deficits Psychiatric: Orientation: alert and oriented x 3 Results & Data Vital Signs (Past 12 Hours) Vital Signs Temp Pulse Pulse Resp BP BP Pulse Ox 04/03/25 08:20 36.4 C L 71 18 134/71 95 04/03/25 03:13 36.6 C 71 18 139/75 92 04/02/25 23:12 36.6 C 69 17 132/68 93 O2 Del Method 04/03/25 08:20 CPAP 04/03/25 03:13 BiPAP 04/02/25 23:12 BiPAP PG Care Time/CCT Total # of Minutes Spent Total Time Spent with Patient: Total time spent is greater than 50% in coordination of care (as documented) at patient's floor/unit and/or counseling patient: Coding Level of Care Code 32176 SUB INP/OBS CARE 2/35MIN Diagnoses Acute kidney injury superimposed on CKD N17.9; N18.9 Symptomatic anemia D64.9 Fluid overload E87.70 Primary hypertension I10 Hypertension type: primary hypertension (4) Hypertension Hypertension type: primary hypertension Qualified Code(s): I10 - Essential (primary) hypertension
[2025-04-03 12:32] VITALS: BP 139/75; PULSE 69
== END 2025-04-03 12:52 | disposition home or self-care (01) | DRG 291 ==
LOC: ED 11:01 → 2N 13:19